=== PATIENT | female | born 1950 | race Caucasian/White ===

== ENCOUNTER 2016-12-14 18:11 | Inpatient (IN) | payer OTHER ==
[~2016-12-14] VITALS: Ht 154.9 cm; Wt 89.5 kg
[~2016-12-14 18:11] MED LIST: ALBU8.5H3 IH; ASPI-535 PO; CLOP75TA27 PO; GABA100C14 PO; HYDR-3498 PO; INSU100C SQ; INSU100V19 SC; LANT3I SQ; LEVA15HF6 INH; LEVO75TA59 PO; MEVA40 PO; OMEG-135 PO; OMEP40CA3 PO; TIMO5DRO30 BOTH EYES; VALS40TA2 PO
[2016-12-14] MEDS ORDERED: ASPIRIN 325 MG TAB PO STA (18:50)
[2016-12-14] MEDS ORDERED: LABETALOL HCL 20MG INJ IV ONE (19:00)
[2016-12-14 19:15] LABS: ADD SCAN DIFF NO
[2016-12-14 19:22] LABS: BASOPHILS % 0.3 % (0.0-2.0); EOSINOPHILS # 0.1 10^3/ul (0.0-0.5); EOSINOPHILS % 1.4 % (0.0-7.0); HEMATOCRIT 32.5 % (37.0-47.0); HEMOGLOBIN 11.3 g/dl (12.0-16.0); LYMPHOCYTES # 2.3 10^3/ul (0.8-2.9); LYMPHOCYTES % 35.4 % (15.0-51.0); MEAN CORPUSCULAR HEMOGLOBIN 28.8 pg (29.0-33.0); MEAN CORPUSCULAR HGB CONC 34.8 g/dl (32.0-37.0); MEAN CORPUSCULAR VOLUME 82.7 fl (82.0-101.0); MONOCYTE # 0.6 10^3/ul (0.3-0.9); MONOCYTES % 9.7 % (0.0-11.0); NEUTROPHIL # 3.4 10^3/ul (1.6-7.5); NEUTROPHILS % 52.7 % (39.0-77.0); PLATELET COUNT 176 10^3/UL (140-415); RED BLOOD COUNT 3.93 10^6/ul (4.20-5.40); RED CELL DISTRIBUTION WIDTH 12.5 % (11.5-14.5); WHITE BLOOD COUNT 6.5 10^3/ul (4.8-10.8)
[2016-12-14 19:40] LABS: INR 1.04; PROTIME 13.6 Sec (12.2-14.2); PT RATIO 1.1
[2016-12-14 19:41] LABS: PARTIAL THROMBOPLASTIN TIME 23.6 Sec (25.0-35.0)
--- NOTE | 2016-12-14 19:42 | RADRPT ---
PROCEDURE: XR Chest. CLINICAL INDICATION: Chest pain. TECHNIQUE: Single frontal view of the chest COMPARISON: 11/19/2015 FINDINGS: The cardiomediastinal silhouette is within normal limits. The lungs are clear. No signs of pleural f luid or pneumothorax are seen. The osseous structures and soft tissues are unremarkable. IMPRESSION: No evidence for active cardiopulmonary disease. RPTAT: [facility] Physician [facility] Date Time Electronically viewed and signed by Sima Marie Physician on 12/14/2016 19:41 RS/
[2016-12-14 19:45] LABS: ALBUMIN 4.3 g/dl (3.3-4.9); ALBUMIN/GLOBULIN RATIO 1.43; BILIRUBIN,INDIRECT 0.3 mg/dl (0-1.1); BILIRUBIN,TOTAL 0.3 mg/dl (0.2-1.3); CALCIUM 9.4 mg/dl (8.4-10.2); CREATININE 1.35 mg/dl (0.44-1.00); POTASSIUM 4.4 mmol/L (3.5-5.1); TOTAL PROTEIN 7.3 g/dl (6.1-8.1)
[2016-12-14 19:56] LABS: TROPONIN-I 0.028 ng/ml (0.00-0.12)
[2016-12-14] MEDS ORDERED: ASPI-664 PO (20:14)
[2016-12-14] MEDS ORDERED: CLOP75TA4 PO (20:14)
[2016-12-14] MEDS ORDERED: GABA400C14 PO (20:14)
[2016-12-14] MEDS ORDERED: LANT3I SC (20:15)
[2016-12-14] MEDS ORDERED: INSULIN LISPRO 100 UNIT/ML VIAL SC STA (20:16)
[2016-12-14] MEDS ORDERED: INSU100C SQ (20:17)
[2016-12-14] MEDS ORDERED: OMEP20CA16 PO (20:17)
[2016-12-14] MEDS ORDERED: ACET1TAB40 PO (20:19)
[2016-12-14] MEDS ORDERED: ALBI30PE SQ (20:19)
[2016-12-14] MEDS ORDERED: OMEG1CAP2 PO (20:20)
[2016-12-14] MEDS ORDERED: ATOR20TA38 PO (20:20)
[2016-12-14] MEDS ORDERED: FURO40TA4 PO (20:20)
[2016-12-14] MEDS ORDERED: HYDR-3672 PO (20:21)
[2016-12-14] MEDS ORDERED: SOD CHLORIDE 0.9% 1,000 ML IV ONE ×3 (20:30→23:30)
[2016-12-14] MEDS ORDERED: ACETAMINOPHEN 325 MG TAB PO PRN ×2 (20:30→23:30)
[2016-12-14] MEDS ORDERED: ONDANSETRON 4 MG INJ IV PRN ×2 (20:30→23:30)
--- NOTE | 2016-12-14 21:04 | ERA ---
ER Documentation Chief Complaint Date/Time DATE: 12/14/16 TIME: 21:00 Chief Complaint Pt reports n/v, fever weakness and hyperglycemia HPI This 66-year-old female presents for chest pain that is substernal nonradiating accompanied with shortness of breath is been going on since earlier today. She also has felt chills and generalized weakness. States that her sugars been very high and she is having trouble controlling at home. Denies vomiting ROS All systems reviewed and are negative except as per history of present illness. Medications Home Meds Reported Medications Hydralazine Hcl* (Hydralazine Hcl*) 50 Mg Tab, 50 MG PO BID, #60 TAB 12/14/16 Furosemide* (Furosemide*) 40 Mg Tablet, 40 MG PO BID, TAB 12/14/16 Atorvastatin Calcium* (Atorvastatin Calcium*) 20 Mg Tablet, 20 MG PO QHS, #30 TAB 12/14/16 [place]-3 Acid Ethyl Esters (Lovaza) 1 Gm Capsule, 2 GM PO QAM, CAP 12/14/16 Acetaminophen with Codeine (Acetaminophen-Cod #3 Tablet) 1 Each Tablet, 1 TAB PO BID, #20 TAB 12/14/16 Albiglutide (Tanzeum) 30 Mg/0.5 Ml Pen.injctr, 30 MG SQ QTUESDAY 12/14/16 Omeprazole* (Omeprazole*) 20 Mg Capsule.dr, 20 MG PO DAILY, #30 CAP 12/14/16 Insulin Lispro (Humalog) 100 Unit/1 Ml Cartridge, 11 UNIT SQ BID TAKE BEFORE LUNCH AND DINNER 12/14/16 Insulin Glargine* (Lantus*) 100 Unit/Ml Soln, 30 UNIT SC QAM, #1 VIAL 12/14/16 Gabapentin* (Gabapentin*) 400 Mg Capsule, 400 MG PO TID, #90 CAP 12/14/16 Clopidogrel Bisulfate* (Clopidogrel Bisulfate*) 75 Mg Tablet, 75 MG PO DAILY, # 30 TAB 12/14/16 Aspirin* (Aspirin* EC) 81 Mg Tablet.dr, 81 MG PO DAILY, TAB 12/14/16 Discontinued Reported Medications Gabapentin* (Gabapentin*) 100 Mg Capsule, 500 MG PO DAILY, #90 CAP 11/19/15 Insulin Glargine* (Lantus*) 100 Unit/Ml Soln, 70 UNITS SQ PM 10/22/13 Insulin Lispro (Humalog) 100 U/Ml Cartridge, 10 SQ PM 09/27/13 Insulin Lispro (Humalog) 100 U/Ml Cartridge, 13 SQ AM 09/27/13 Valsartan* (Diovan*) 40 Mg Tablet, 40 MG PO DAILY 09/27/13 Clopidogrel Bisulfate (Clopidogrel) 75 Mg Tablet, 75 MG PO DAILY 09/27/13 Fish Oil* (Fish Oil*) 1,000 Mg Cap, 1000 MG PO DAILY, CAP 09/27/13 Albuterol Sulfate* (Proair HFA*) 8.5 Gm Hfa.aer.ad, 1 PUFF IH Y for SHORTNESS OF BREATH 09/27/13 Timolol Maleate* (Timoptic*) 5 Ml Drops, 1 DROP BOTH EYES BID 09/27/13 Levalbuterol* (Xopenex* HFA) 15 Gm Inha, 3 INH INH TID 07/17/12 Omeprazole* (Prilosec*) 40 Mg Capsule.dr, 20 MG PO DAILY 07/17/12 Lovastatin (Lovastatin) 40 Mg Tablet, 40 MG PO DAILY 07/17/12 Levothyroxine Sodium (Levothroid) 75 Mcg Tablet, 75 MCG PO DAILY 07/17/12 Insulin Glargine,Hum.rec.anlog (Lantus) 100 U/Ml Vial, 90 UNITS SC AM, 0 Refills 07/17/12 Aspirin Ec (Aspir 81) 81 Mg Tablet.dr, 1 TAB PO DAILY, 0 Refills 03/29/10 Discontinued Scripts Hydrocodone Bit-Acetaminophen* (Stanton*) 5-325 Mg Tab, 1 TAB PO Q6 Y for SEVERE PAIN LEVEL 7-10, #20 TAB Prov:NADEEM RICO NP 08/05/15 Allergies Allergies: Coded Allergies: No Known Drug Allergies (Verified Allergy, Unknown, 12/14/16) PMhx/Soc History of Surgery: Yes (cabg 2002) Anesthesia Reaction: No Hx Neurological Disorder: No Hx Respiratory Disorders: No Hx Cardiac Disorders: Yes (CAD) Hx Psychiatric Problems: No Hx Miscellaneous Medical Probl: No Hx Alcohol Use: No Hx Substance Use: No Hx Tobacco Use: No Smoking Status: Never smoker Physical Exam Vitals Vital Signs Date Time Temp Pulse Resp B/P Pulse Ox O2 Delivery O2 Flow Rate FiO2 12/14/16 19:30 81 18 153/97 98 Room Air 12/14/16 18:39 98.5 94 24 224/100 98 Physical Exam Const: [] Mild distress, appears uncomfortable Head: Atraumatic Eyes: Normal Conjunctiva ENT: Normal External Ears, Nose and Mouth. Neck: Full range of motion..~ No meningismus. Resp: Clear to auscultation bilaterally Cardio: Regular rate and rhythm, no murmurs Abd: Soft, non tender, non distended. Normal bowel sounds Skin: No petechiae or rashes Back: No midline or flank tenderness Ext: No cyanosis, or edema Neur: Awake and alert and oriented 3, no focal deficit Psych: Normal Mood and Affect Result Diagram: 12/15/1672412/15/16 0725 Results 24 hrs Laboratory Tests Test 12/14/16 18:35 12/14/16 19:05 12/14/16 20:23 Bedside Glucose > 595mg/dL > 595mg/dL White Blood Count 6.510^3/ul Red Blood Count 3.9310^6/ul Hemoglobin 11.3g/dl Hematocrit 32.5% Mean Corpuscular Volume 82.7fl Mean Corpuscular Hemoglobin 28.8pg Mean Corpuscular Hemoglobin Concent 34.8g/dl Red Cell Distribution Width 12.5% Platelet Count 90390^3/UL Mean Platelet Volume 12.0fl Neutrophils % 52.7% Lymphocytes % 35.4% Monocytes % 9.7% Eosinophils % 1.4% Basophils % 0.3% Nucleated Red Blood Cells % 0.0/100WBC Neutrophils # 3.410^3/ul Lymphocytes # 2.310^3/ul Monocytes # 0.610^3/ul Eosinophils # 0.110^3/ul Basophils # 0.010^3/ul Nucleated Red Blood Cells # 0.010^3/ul Prothrombin Time 13.6Sec Prothrombin Time Ratio 1.1 INR International Normalized Ratio 1.04 Activated Partial Thromboplast Time 23.6Sec Sodium Level 125mmol/L Potassium Level 4.4mmol/L Chloride Level 92mmol/L Carbon Dioxide Level 25mmol/L Anion Gap 12 Blood Urea Nitrogen 32mg/dl Creatinine 1.35mg/dl Glucose Level 664mg/dl Calcium Level 9.4mg/dl Total Bilirubin 0.3mg/dl Direct Bilirubin 0.00mg/dl Indirect Bilirubin 0.3mg/dl Aspartate Amino Transf (AST/SGOT) 23IU/L Alanine Aminotransferase (ALT/SGPT) 35IU/L Alkaline Phosphatase 188IU/L Troponin I 0.028ng/ml B-Type Natriuretic Peptide 940PG/ML Total Protein 7.3g/dl Albumin 4.3g/dl Globulin 3.00g/dl Albumin/Globulin Ratio 1.43 Lipase 138U/L Current Medications Medications (Trade) Dose Ordered Sig/Vicenta Route PRN Reason Start Time Stop Time Status Last Admin Dose Admin Aspirin (Aspirin) 325 mg ONCE STAT PO 12/14/16 18:50 12/14/16 18:57 DC 12/14/16 19:08 Labetalol HCl 20 mg 20 mg ONCE ONCE IV 12/14/16 19:00 12/14/16 19:01 DC 12/14/16 19:09 Sodium Chloride (NS) 1,000 ml @ 1,000 mls/hr Q1H ONCE IV 12/14/16 20:30 12/14/16 21:29 DC 12/14/16 20:17 Insulin Human Lispro (Humalog) 16 unit ONCE STAT SC 12/14/16 20:16 12/14/16 20:17 DC 12/14/16 20:20 Ondansetron HCl (Zofran Inj) 4 mg ER BRIDGE PRN IV NAUSEA AND/OR VOMITING 12/14/16 20:30 12/15/16 20:29 DC Acetaminophen (Tylenol Tab) 650 mg ER BRIDGE PRN PO MILD PAIN/FEVER 12/14/16 20:30 12/15/16 20:29 DC Procedures/MDM Chest pain and shortness of breath with out of control hyperglycemia. Patient was given 3 L of fluid in the emergency room help lower sugar. She is also given 60 mg of IM lispro. Sugar did decrease within a couple hours to 499. She was also given aspirin. She was admitted to telemetry for further monitoring and trending of troponins although the initial troponin was negative and EKG was nonischemic. Spoke with Dr. De will be admitting the patient to telemetry. EKG interpretation: Sinus origin of rhythm without ST or T-wave changes concerning for acute ischemia. court recording monitor interpretation: Normal sinus rhythm without arrhythmia Chest x-ray interpretation: I see no acute process. I see no infiltrate, no pulmonary edema, no pneumothorax, no fractures Departure Diagnosis: Primary Impression: Chest pain Additional Impressions: Uncontrolled diabetes mellitus Anemia Condition: Serious JOHNSON VERA DO Dec 14, 2016 21:03
[2016-12-14 23:00] VITALS: Ht 154.9 cm; Wt 89.5 kg
[2016-12-14 23:13] VITALS: PULSE 80
[2016-12-14 23:18] VITALS: BP 177/77; RESP 17
[2016-12-14] MEDS ORDERED: morphine 2 MG INJ IV PRN (23:30)
[2016-12-14] MEDS ORDERED: NITROGLYCERIN (SL) 0.4 MG TAB SL PRN (23:30)
[2016-12-14] MEDS ORDERED: NACL 0.9% 3 ML SYG IV SCH (23:30)
[2016-12-14] MEDS ORDERED: GLUCOSE GEL 15 GRAM TUBE BUCCAL PRN (23:45)
[2016-12-14] MEDS ORDERED: DEXTROSE 50% 50 ML SYRINGE IV PRN ×2 (23:45)
[2016-12-14] MEDS ORDERED: GLUCAGON 1 MG INJ IM PRN (23:45)
[2016-12-14] MEDS ORDERED: GLUCOSE GEL 15 GRAM TUBE PO PRN ×2 (23:45)
[2016-12-15] VITALS (13 sets, daily range): BP systolic 138–181; BP diastolic 66–89; PULSE 67–78; RESP 17–20
[2016-12-15] MEDS: INSULIN ASPART [NOVOLOG] 3 ML PEN SC SCH ×6 (01:15→21:48)
[2016-12-15] MEDS: ACCU-CHEK XX SCH (02:00)
[2016-12-15 02:15] LABS: CALCIUM 8.9 mg/dl (8.4-10.2); CREATININE 1.09 mg/dl (0.44-1.00); POTASSIUM 3.8 mmol/L (3.5-5.1)
[2016-12-15 02:24] LABS: CK-MB 1.5 ng/ml (0.0-2.4); TROPONIN-I 0.03 ng/ml (0.00-0.12)
[2016-12-15] MEDS: SOD CHLORIDE 0.9% 1,000 ML IV SCH ×3 (02:28→21:37)
[2016-12-15] MEDS ORDERED: INSULIN ASPART [NOVOLOG] 3 ML PEN SC ONE (03:30)
[2016-12-15] MEDS ORDERED: ALBIGLUTIDE 30 MG SQ SCH (04:00)
--- NOTE | 2016-12-15 04:04 | HP ---
Date/Time of Note Date/Time of Note DATE: 12/15/16 TIME: 03:53 Assessment/Plan VTE Prophylaxis VTE Prophylaxis Intervention: SCD's Lines/Catheters IV Catheter Type (from [facility]): [facility] Assessment/Plan Chief Complaint/Hosp Course This is a 66-year-old female being admitted to the telemetry floor for: #1 chest pain: Rule out ACS. Patient does have a significant cardiac history as well as risk factors. At the current time will trend troponins, will check a echocardiogram. EKG did not show any ST or T-wave abnormalities. Consult cardiology. #2 Hyperglycemia: Patient initially presented with sugars in the 600s. She was subsequently given insulin injections. Will continue to check blood sugars every 1-2 hours. Put patient on moderate sliding scale. We will also give IV fluid hydration. Currently no signs of DKA. #3 poorly controlled diabetes: We will check a hemoglobin A1c. Will adjust patient's insulin as indicated. #4 Hyponatremia: This likely appears to be pseudo-hyponatremia secondary to her elevated blood sugars. We will continue IV fluid hydration and correction of the glucose. And will continue to monitor the sodium levels. #5 hypertension: Continue home medications. #6 chronic kidney disease: We will continue fluid hydration at this time. Based on patient's diabetes mellitus and suspected chronic kidney disease she would likely benefit from an YESENIA or an arb upon discharge. #7 DVT GI prophylaxis SCDs, Protonix Further treatment strategy will be implemented as per the clinical course Problems: HPI/ROS Admit Date/Time Admit Date/Time Dec 14, 2016 at 20:32 Hx of Present Illness chief complaint: Chest pain, generalized weakness This 66-year-old female presents for chest pain that is substernal nonradiating accompanied with shortness of breath is been going on since earlier today. She also has felt chills and generalized weakness. Patient recently returned from [place] and when she arrived home her daughter noticed that she was not appearing well and her blood sugars were well controlled she brought her into the ED. she describes her chest pain as a dull pressure-like sensation. It is nonradiating. Denies any nausea or vomiting. Allergies: NKDA Medications: See ADRIA MENDOZA Const: As per HPI Eyes : No pain discharge or redness or change in visual acuity ENT: No pain, sore throat, congestion, congestion, dysphagia or discharge Respiratory: No shortness of breath, cough, sputum, wheezing, or pleuritic pain Cardiovascular: As per HPI GI : no change in appetite, abdominal pain, nausea, vomiting, diarrhea, constipation, or change in the color his stool Genitourinary: No dysuria, hematuria, flank pain , discharge or CVA tenderness Musculoskeletal: No joint pain, back pain, neck pain, restricted range of motion in neck or joints Skin: No rash, bruising or hives Neuro: No headache, dizziness, syncope, seizure, focal weakness Endocrine: As per HPI Psych: No hallucination, depression, anxiety or suicidal ideation PMH/Family/Social Past Medical History CAD status post stents 2, diabetes mellitus, hypertension, chronic kidney disease Past Surgical History CABG, stents 2 cardiac, eye surgery Family History Significant Family History: diabetes Social History Alcohol Use: none Smoking Status: Never smoker Drug Use: none Exam/Review of Systems Vital Signs Vitals Vital Signs Date Time Temp Pulse Resp B/P Pulse Ox O2 Delivery O2 Flow Rate FiO2 12/15/16 00:02 97.7 74 17 176/74 98 12/14/16 21:30 Room Air Intake and Output 12/14/16 12/14/16 12/15/16 15:00 23:00 07:00 Intake Total 1060 ml Balance 1060 ml Exam Exam General: Patient is a obese female laying in bed in no acute distress. HEENT: Atraumatic, normocephalic. The pupils are equal, round and reactive. Extraocular motor are intact Neck: Supple with full range of motion. No rigidity or meningismus Chest: Nontender Lungs: Clear to auscultation bilaterally no crackles rales or wheezing Heart: Normal S1-S2, Regular rhythm and rate. No overt murmurs appreciated Abdomen: Soft , nontender, nondistended , bowel sounds are present. No guarding no rebound tenderness , No masses or organomegaly. Extremities: Normal to inspection, no edema no cyanosis Neurologic: Normal mental status, speech normal, cranial nerves II through XII are intact, motor and sensory are intact, no focal weakness Additional Comments PROCEDURE: XR Chest. CLINICAL INDICATION: Chest pain. TECHNIQUE: Single frontal view of the chest COMPARISON: 11/19/2015 FINDINGS: The cardiomediastinal silhouette is within normal limits. The lungs are clear. No signs of pleural fluid or pneumothorax are seen. The osseous structures and soft tissues are unremarkable. IMPRESSION: No evidence for active cardiopulmonary disease. RPTAT: [facility] Physician [facility] Date Time Electronically viewed and signed by Sima Marie Physician on 12/14/2016 19:41 EKG did not show any ST or T-wave abnormalities. as per ed physician documentation Labs Result Diagram: 12/14/16 1905 12/15/16 0043 Medications Medications Current Medications Sodium Chloride (NS) 1,000 ml @ 75 mls/hr [id number] IV Last administered on 12/15 02:28; Admin Dose 75 MLS/HR; Start 12/14/16 at 23:15 Ondansetron HCl (Zofran Inj) 4 mg Q6H PRN IV NAUSEA AND/OR VOMITING; Start 04/22 at 23:30 Aspirin (Aspirin) 81 mg DAILY PO ; Start 12/15/16 at 09:00 Nitroglycerin (Nitroglycerin (Sl Tab) 0.4 Mg) 1 tab Q5M PRN SL CHEST PAIN; Start 12/14/16 at 23:30 Acetaminophen (Tylenol Tab) 650 mg Q6H PRN PO PAIN LEVEL 1-3 OR FEVER; Start at 23:30 Morphine Sulfate (morphine) 2 mg Q4H PRN IV PAIN LEVEL 7-10; Start 12/14/16 at 23:30 Pantoprazole (Protonix Iv) 40 mg DAILY@06 IV ; Start 12/15/16 at 06:00 Diagnostic Test (Pha) (Accu-Chek) 1 ea 02 XX ; Start 12/15/16 at 02:00 Insulin Aspart (Novolog Insulin Pen) NOVOLOG *MODERATE* ALGORI... Q4 SC Last administered on 12/15/16 01:15; Admin Dose 10 UNIT; Start 12/15/16 at 01:00 Miscellaneous Information 1 ea NOTE XX ; Start 12/14/16 at 23:45 Glucose (Glutose) 15 gm Q15M PRN PO DECREASED GLUCOSE; Start 12/14/16 at 23:45 Glucose (Glutose) 22.5 gm Q15M PRN PO DECREASED GLUCOSE; Start 12/14/16 at 23: 45 Dextrose (D50w Syringe) 25 ml Q15M PRN IV DECREASED GLUCOSE; Start 12/14/16 at 23:45 Dextrose (D50w Syringe) 50 ml Q15M PRN IV DECREASED GLUCOSE; Start 12/14/16 at 23:45 Glucagon (Glucagen) 1 mg Q15M PRN IM DECREASED GLUCOSE; Start 12/14/16 at 23:45 Glucose (Glutose) 15 gm Q15M PRN BUCCAL DECREASED GLUCOSE; Start 12/14/16 at 23 :45 Hydralazine HCl (Apresoline) 50 mg BID PO Last administered on 12/15/16t 00:31 ; Admin Dose 50 MG; Start 12/15/16 at 00:30 Hydralazine HCl (Apresoline) 10 mg Q6H PRN IV ELEVATED SYSTOLIC BP; Start 12/15 at 00:30 MILAGROS CONNOR Dec 15, 2016 04:03
[2016-12-15] MEDS: PANTOPRAZOLE 40 MG INJ IV SCH (05:14)
[2016-12-15] MEDS: CLOPIDOGREL 75 MG TAB PO SCH (08:32)
[2016-12-15] MEDS: FISH OIL 1,000 MG CAP PO SCH (08:32)
[2016-12-15] MEDS: GABAPENTIN 400 MG CAP PO SCH ×3 (08:33→21:27)
[2016-12-15] MEDS: ASPIRIN (EC) 81 MG TAB PO SCH (08:33)
[2016-12-15] MEDS ORDERED: ASPIRIN 81 MG TAB PO SCH (09:00)
[2016-12-15 09:05] LABS: ADD SCAN DIFF NO
[2016-12-15 09:10] LABS: BASOPHILS % 0.2 % (0.0-2.0); EOSINOPHILS # 0.1 10^3/ul (0.0-0.5); EOSINOPHILS % 2.3 % (0.0-7.0); HEMATOCRIT 29.4 % (37.0-47.0); HEMOGLOBIN 10.1 g/dl (12.0-16.0); LYMPHOCYTES # 1.8 10^3/ul (0.8-2.9); LYMPHOCYTES % 32.1 % (15.0-51.0); MEAN CORPUSCULAR HEMOGLOBIN 29.4 pg (29.0-33.0); MEAN CORPUSCULAR HGB CONC 34.4 g/dl (32.0-37.0); MEAN CORPUSCULAR VOLUME 85.5 fl (82.0-101.0); MEAN PLATELET VOLUME 12.3 fl (7.4-10.4); MONOCYTE # 0.6 10^3/ul (0.3-0.9); MONOCYTES % 10.2 % (0.0-11.0); NEUTROPHIL # 3.1 10^3/ul (1.6-7.5); PLATELET COUNT 155 10^3/UL (140-415); RED BLOOD COUNT 3.44 10^6/ul (4.20-5.40); RED CELL DISTRIBUTION WIDTH 12.5 % (11.5-14.5); WHITE BLOOD COUNT 5.7 10^3/ul (4.8-10.8)
[2016-12-15 09:32] LABS: ALBUMIN 3.1 g/dl (3.3-4.9); ALBUMIN/GLOBULIN RATIO 1.29; BILIRUBIN,INDIRECT 0.1 mg/dl (0-1.1); BILIRUBIN,TOTAL 0.1 mg/dl (0.2-1.3); CALCIUM 9.1 mg/dl (8.4-10.2); CHOL/HDL RATIO 4.2 RATIO; CREATININE 1.07 mg/dl (0.44-1.00); POTASSIUM 4.3 mmol/L (3.5-5.1); TOTAL PROTEIN 5.5 g/dl (6.1-8.1)
[2016-12-15 10:01] LABS: THYROID STIMULATING HORMONE 0.022 MIU/L (0.465-4.680)
[2016-12-15 10:30] LABS: CK-MB 1.43 ng/ml (0.0-2.4); TROPONIN-I 0.031 ng/ml (0.00-0.12)
--- NOTE | 2016-12-15 11:41 | CONS ---
Date/Time of Note Date/Time of Note DATE: 12/15/16 TIME: 11:35 Assessment/Plan Assessment/Plan Additional Assessment/Plan Chest pain Fevers, chills and cough CAD with history of CABG Hypertension, not controlled Dyslipidemia Thyroid dysfunction -Patient's chest discomfort is worse with palpation of chest wall and with coughing. Serial cardiac enzymes remain negative. Patient with history of cardiac catheterization November 2015 with no significant obstructive disease. Echocardiogram to be done. Increase frequency of hydralazine and start YESENIA inhibitor if no contraindication. Consultation Date/Type/Reason Admit Date/Time Dec 14, 2016 at 20:32 Type of Consultation: cv Reason for Consultation Chest pain Hx of Present Illness This is a 66-year-old female with past medical history of coronary artery disease with history of CABG, hypertension, dyslipidemia, thyroid dysfunction who presents with multiple complaints. Patient with symptoms of fevers and chills going on for the past for 5 days, cough which has been productive, shortness of breath associated with cough and developed left-sided chest pain from yesterday. Chest pain is worse with coughing and pushing on chest wall. Chest discomfort is sharp in nature and patient points to a distinct area in her chest wall with the pain is at. Exertion does not worsen or improve chest discomfort. She is currently feeling better since her admission. 12 point review of systems was performed with all pertinent positives and negatives mentioned above and all else is negative Past Medical History Medical History: coronary artery disease, high cholesterol, hypertension Past Surgical History Past Surgical Hx: coronary bypass surgery Family History Significant Family History: no pertinent family hx Social History Alcohol Use: none Smoking Status: Never smoker Drug Use: none Exam/Review of Systems Vital Signs Vitals Vital Signs Date Time Temp Pulse Resp B/P Pulse Ox O2 Delivery O2 Flow Rate FiO2 12/15/16 11:28 97.7 70 18 181/66 100 12/14/16 21:30 Room Air Intake and Output 12/14/16 12/14/16 12/15/16 15:00 23:00 07:00 Intake Total 1181 ml Balance 1181 ml Exam No apparent distress Constitutional: alert, obese, oriented Head: normocephalic Neck: supple Respiratory: other (Coarse breath sounds bilaterally, no wheezing) Cardiovascular: other (S1-S2 heard), regular rate and rhythm Gastrointestinal: bowel sounds, non-tender, soft Extremities: other (No edema) Results Result Diagram: 12/15/16 0725 12/15/16 0725 Results 24 hrs Laboratory Tests Test 12/14/16 18:35 12/14/16 19:05 12/14/16 20:23 12/14/16 22:07 Bedside Glucose > 595 *H > 595 *H 499 *H White Blood Count 6.5 Red Blood Count 3.93 L Hemoglobin 11.3 L Hematocrit 32.5 L Mean Corpuscular Volume 82.7 Mean Corpuscular Hemoglobin 28.8 L Mean Corpuscular Hemoglobin Concent 34.8 Red Cell Distribution Width 12.5 Platelet Count 176 Mean Platelet Volume 12.0 #H Neutrophils % 52.7 Lymphocytes % 35.4 Monocytes % 9.7 Eosinophils % 1.4 Basophils % 0.3 Nucleated Red Blood Cells % 0.0 Neutrophils # 3.4 Lymphocytes # 2.3 Monocytes # 0.6 Eosinophils # 0.1 Basophils # 0.0 Nucleated Red Blood Cells # 0.0 Prothrombin Time 13.6 Prothrombin Time Ratio 1.1 INR International Normalized Ratio 1.04 Activated Partial Thromboplast Time 23.6 L Sodium Level 125 L Potassium Level 4.4 Chloride Level 92 L Carbon Dioxide Level 25 Anion Gap 12 Blood Urea Nitrogen 32 H Creatinine 1.35 H Glucose Level 664 *H Calcium Level 9.4 Total Bilirubin 0.3 Direct Bilirubin 0.00 Indirect Bilirubin 0.3 Aspartate Amino Transf (AST/SGOT) 23 Alanine Aminotransferase (ALT/SGPT) 35 Alkaline Phosphatase 188 H Troponin I 0.028 B-Type Natriuretic Peptide 940 H Total Protein 7.3 Albumin 4.3 Globulin 3.00 Albumin/Globulin Ratio 1.43 Lipase 138 Test 12/14/16 23:27 12/15/16 00:42 12/15/16 00:43 12/15/16 01:04 Bedside Glucose 373 H 345 H Creatine Kinase 81 Creatine Kinase Index 1.9 Creatinine Kinase MB (Mass) 1.50 Troponin I 0.030 Sodium Level 127 L Potassium Level 3.8 Chloride Level 100 Carbon Dioxide Level 23 Anion Gap 8 Blood Urea Nitrogen 28 H Creatinine 1.09 H Glucose Level 334 #H Calcium Level 8.9 Test 12/15/16 03:05 12/15/16 05:12 12/15/16 07:25 12/15/16 07:35 Bedside Glucose 303 H 220 White Blood Count 5.7 Red Blood Count 3.44 L Hemoglobin 10.1 L Hematocrit 29.4 L Mean Corpuscular Volume 85.5 Mean Corpuscular Hemoglobin 29.4 Mean Corpuscular Hemoglobin Concent 34.4 Red Cell Distribution Width 12.5 Platelet Count 155 Mean Platelet Volume 12.3 H Neutrophils % 55.0 Lymphocytes % 32.1 Monocytes % 10.2 Eosinophils % 2.3 Basophils % 0.2 Nucleated Red Blood Cells % 0.0 Neutrophils # 3.1 Lymphocytes # 1.8 Monocytes # 0.6 Eosinophils # 0.1 Basophils # 0.0 Nucleated Red Blood Cells # 0.0 Sodium Level 133 L Potassium Level 4.3 Chloride Level 104 Carbon Dioxide Level 28 Anion Gap 5 L Blood Urea Nitrogen 23 H Creatinine 1.07 H Glucose Level 160 # Hemoglobin A1c 13.8 H Calcium Level 9.1 Total Bilirubin 0.1 L Direct Bilirubin 0.00 Indirect Bilirubin 0.1 Aspartate Amino Transf (AST/SGOT) 20 Alanine Aminotransferase (ALT/SGPT) 26 Alkaline Phosphatase 96 Total Protein 5.5 #L Albumin 3.1 #L Globulin 2.40 Albumin/Globulin Ratio 1.29 Triglycerides Level 197 H Cholesterol Level 158 LDL Cholesterol, Calculated 82 HDL Cholesterol 37 Cholesterol/HDL Ratio 4.2 Thyroid Stimulating Hormone (TSH) 0.022 L Creatine Kinase 63 Creatine Kinase Index 2.3 Creatinine Kinase MB (Mass) 1.43 Troponin I 0.031 Test 12/15/16 08:31 Bedside Glucose 147 Medications Medications Current Medications Sodium Chloride (NS) 1,000 ml @ 75 mls/hr [id number] IV Last administered on 12/15t 02:28; Admin Dose 75 MLS/HR; Start 12/14/16 at 23:15 Ondansetron HCl (Zofran Inj) 4 mg Q6H PRN IV NAUSEA AND/OR VOMITING; Start 04/22 at 23:30 Aspirin (Aspirin) 81 mg DAILY PO ; Start 12/15/16 at 09:00 Nitroglycerin (Nitroglycerin (Sl Tab) 0.4 Mg) 1 tab Q5M PRN SL CHEST PAIN; Start 12/14/16 at 23:30 Acetaminophen (Tylenol Tab) 650 mg Q6H PRN PO PAIN LEVEL 1-3 OR FEVER; Start at 23:30 Morphine Sulfate (morphine) 2 mg Q4H PRN IV PAIN LEVEL 7-10; Start 12/14/16 at 23:30 Pantoprazole (Protonix Iv) 40 mg DAILY@06 IV Last administered on 12/15/16 05: 14; Admin Dose 40 MG; Start 12/15/16 at 06:00 Diagnostic Test (Pha) (Accu-Chek) 1 ea 02 XX ; Start 12/15/16 at 02:00 Insulin Aspart (Novolog Insulin Pen) NOVOLOG *MODERATE* ALGORI... Q4 SC Last administered on 12/15/16 08:41; Admin Dose 2 UNIT; Start 12/15/16 at 01:00 Miscellaneous Information 1 ea NOTE XX ; Start 12/14/16 at 23:45 Glucose (Glutose) 15 gm Q15M PRN PO DECREASED GLUCOSE; Start 12/14/16 at 23:45 Glucose (Glutose) 22.5 gm Q15M PRN PO DECREASED GLUCOSE; Start 12/14/16 at 23: 45 Dextrose (D50w Syringe) 25 ml Q15M PRN IV DECREASED GLUCOSE; Start 12/14/16 at 23:45 Dextrose (D50w Syringe) 50 ml Q15M PRN IV DECREASED GLUCOSE; Start 12/14/16 at 23:45 Glucagon (Glucagen) 1 mg Q15M PRN IM DECREASED GLUCOSE; Start 12/14/16 at 23:45 Glucose (Glutose) 15 gm Q15M PRN BUCCAL DECREASED GLUCOSE; Start 12/14/16 at 23 :45 Hydralazine HCl (Apresoline) 50 mg BID PO Last administered on 12/15/16 08:33 ; Admin Dose 50 MG; Start 12/15/16 at 00:30 Hydralazine HCl (Apresoline) 10 mg Q6H PRN IV ELEVATED SYSTOLIC BP; Start 12/15 at 00:30 Aspirin (Halfprin) 81 mg DAILY PO Last administered on 12/15/16 08:33; Admin Dose 81 MG; Start 12/15/16 at 09:00 Atorvastatin Calcium (Lipitor) 20 mg QHS PO ; Start 12/15/16 at 21:00 Clopidogrel Bisulfate (plaVIX) 75 mg DAILY PO Last administered on 12/15/16 08 :32; Admin Dose 75 MG; Start 12/15/16 at 09:00 Gabapentin (Neurontin) 400 mg TID PO Last administered on 12/15/16 08:33; Admin Dose 400 MG; Start 12/15/16 at 09:00 Hydralazine HCl (Apresoline) 50 mg BID PO ; Start 12/15/16 at 09:00 Fish Oil (Fish Oil) 2,000 mg QAM PO Last administered on 12/15/16t 08:32; Admin Dose 2,000 MG; Start 12/15/16 at 09:00 Procedures Procedures ECG demonstrates sinus rhythm, QRS 82 ms, nonspecific ST-T abnormalities Garry Pollard DO Dec 15, 2016 11:41
[2016-12-15] MEDS: LISINOPRIL 5 MG TAB PO SCH ×2 (12:39→21:28)
[2016-12-15] MEDS: GUAIFENESIN/CODEINE 5ML CUP PO PRN (15:27)
[2016-12-15] MEDS ORDERED: INSULIN ASPART [NOVOLOG] 3 ML PEN SC SCH (17:25)
[2016-12-15] MEDS ORDERED: INSULIN GLARGINE [LANtus] 3 ML PEN SC SCH (20:00)
[2016-12-15] MEDS: ATORVASTATIN 20 MG TAB PO SCH (21:27)
--- NOTE | 2016-12-15 21:34 | RADRPT ---
Echocardiogram Report Patient Name: MARTY TYLER Gender: Female Date: 1950 Study Date: 15-Dec-2016 Phlebotomist Supervisor/Instructor: Femi Bennett [facility] Location: [address] Ref. Physician: MILAGROS CONNOR Quality: Adequate Procedures: Transthoracic echocardiogram with complete 2D, M-Mode, and doppler examination. Indications: Chest Pain. 2D/M Mode Doppler Measurement Value Normal Ranges Measurement Value Normal Ranges LVIDd 2D 3.7 3.5 - 5.6 cm AV Peak Michael 1.5 m/sec LVIDs 2D 2.9 2.1 - 4.1 cm AV Peak PG 9.1 mmHg LVPWd 2D 0.9 0.6 - 1.1 cm LVOT Peak Michael 0.9 m/sec IVSd 2D 0.9 0.6 - 1.1 cm LVOT Peak PG 3.4 mmHg AoR Diam 2D 2.5 2.0 - 3.7 cm MV E Peak Michael 0.7 m/sec EDV 2D 59.5 cm3 MV A Peak Michael 0.8 m/sec ESV 2D 24.2 cm3 MV E/A 0.9 LA Dimen 2D 3.7 2.3 - 4.0 cm MV Decel Time 229 msec MV Decel Calhoun 3 MV E/A 0.9 TR Peak Michael 2.5 m/sec TR Peak PG 25.5 mmHg RVSP 29.0 mmHg Findings Left Ventricle: Normal left ventricular systolic function. Normal left ventricular cavity size. Normal left ventricular wall thickness. Ejection fraction is visually estimated at 60 %. Tissue Doppler/Mitral Doppler indices are consistent with impaired relaxation (Stage I diastolic dysfunction). Right Ventricle: Normal right ventricular size. Normal right ventricular systolic function. Left Atrium: The left atrium is normal in size. Right Atrium: The right atrium is normal in size. Mitral Valve: Mitral valve leaflets appear mildly thickened. Mild mitral annular calcification. Trace mitral regurgitation. Aortic Valve: No significant aortic stenosis or insufficiency. Aortic cusps appear mildly calcified. Tricuspid Valve: Normal appearance of the tricuspid valve. Estimated peak PA systolic pressure 29 mmHg. There is trace tricuspid regurgitation. Pulmonic Valve: Pulmonic valve not well visualized. Pericardium: Normal pericardium with no significant pericardial effusion. Aorta: Normal aortic root. IVC: Normal size and normal respiratory collapse consistent with normal right atrial pressure. Conclusions Normal left ventricular systolic function. Normal left ventricular cavity size. Normal left ventricular wall thickness. Ejection fraction is visually estimated at 60 %. Tissue Doppler/Mitral Doppler indices are consistent with impaired relaxation (Stage I diastolic dysfunction). Normal right ventricular size. Normal right ventricular systolic function. The left atrium is normal in size. The right atrium is normal in size. No significant valvular stenosis or regurgitation seen. Normal pericardium with no significant pericardial effusion. Electronically Signed By: Garry Pollard 15-Dec-2016 21:33:25 -0700 Patient Name: MARTY TYLER Study Date: 15-Dec-2016 [id number]
[2016-12-16] VITALS (11 sets, daily range): BP systolic 133–157; BP diastolic 61–78; PULSE 67–78; RESP 16–20
[2016-12-16] MEDS: SOD CHLORIDE 0.9% 1,000 ML IV SCH ×3 (00:35→23:52)
[2016-12-16] MEDS ORDERED: ACCU-CHEK XX SCH (02:00)
[2016-12-16] MEDS: ACCU-CHEK XX SCH (02:00)
[2016-12-16] MEDS ORDERED: INSULIN ASPART [NOVOLOG] 3 ML PEN SC ONE (02:30)
[2016-12-16] MEDS: PANTOPRAZOLE 40 MG INJ IV SCH (05:10)
[2016-12-16 08:07] LABS: ADD SCAN DIFF NO
[2016-12-16] MEDS: INSULIN ASPART [NOVOLOG] 3 ML PEN SC SCH ×7 (08:18→21:00)
[2016-12-16 08:22] LABS: BASOPHILS % 0.4 % (0.0-2.0); EOSINOPHILS # 0.1 10^3/ul (0.0-0.5); EOSINOPHILS % 2.3 % (0.0-7.0); HEMATOCRIT 30.1 % (37.0-47.0); HEMOGLOBIN 9.8 g/dl (12.0-16.0); LYMPHOCYTES # 1.7 10^3/ul (0.8-2.9); LYMPHOCYTES % 29.8 % (15.0-51.0); MEAN CORPUSCULAR HEMOGLOBIN 28.7 pg (29.0-33.0); MEAN CORPUSCULAR HGB CONC 32.6 g/dl (32.0-37.0); MEAN PLATELET VOLUME 11.9 fl (7.4-10.4); MONOCYTE # 0.6 10^3/ul (0.3-0.9); MONOCYTES % 10.6 % (0.0-11.0); NEUTROPHIL # 3.2 10^3/ul (1.6-7.5); NEUTROPHILS % 56.7 % (39.0-77.0); PLATELET COUNT 142 10^3/UL (140-415); RED BLOOD COUNT 3.42 10^6/ul (4.20-5.40); WHITE BLOOD COUNT 5.7 10^3/ul (4.8-10.8)
[2016-12-16 08:27] LABS: MAGNESIUM 1.4 mg/dl (1.7-2.5); PHOSPHORUS 3.2 mg/dl (2.5-4.9)
[2016-12-16 08:44] LABS: CALCIUM 8.7 mg/dl (8.4-10.2); CREATININE 1.26 mg/dl (0.44-1.00); POTASSIUM 4.5 mmol/L (3.5-5.1)
--- NOTE | 2016-12-16 09:54 | PN ---
Date/Time of Note Date/Time of Note DATE: 12/16/16 TIME: 09:53 Assessment/Plan VTE Prophylaxis VTE Prophylaxis Intervention: heparin Lines/Catheters IV C[facility]ter Type (from [facility] Peripheral IV Urinary Cath still in place: No Assessment/Plan Chief Complaint/Hosp Course 1. Chest pain. Acute coronary syndrome ruled out. Serial troponins negative. 2D echocardiogram showing preserved left ventricular ejection fraction. 2. Type 2 diabetes mellitus. Uncontrolled. Hemoglobin A1c 13.8. Continue sliding scale insulin along with pre-meal insulin Lantus insulin. Await diabetes education consult. 3. CAD with history of CABG in the past. Continue aspirin and Plavix. 4. Dyslipidemia. Continue statins. Fasting lipid panel suboptimal. 5. Essential hypertension. Continue antihypertensives. 6. Normocytic, normochromic anemia. Etiology unclear. Monitor H&H closely. Will obtain an iron panel. 7. Chronic kidney disease. Monitor BUN and creatinine closely. Avoid nephrotoxic medications. 8. Fluids, electrolytes, and nutrition. Carbohydrate controlled, low- cholesterol diet. 9. DVT prophylaxis. Subcutaneous heparin. 10. Gastrointestinal prophylaxis. Proton pump inhibitors. 11. Plan. Continue current management. Adjust insulin dosing to obtain optimal blood sugar control. Await diabetic education consult. Case discussed with . Problems: Subjective 24 Hr Interval Summary Free Text/Dictation Denies any chest pain. Complains of sore throat and occasional nonproductive cough. Exam/Review of Systems Vital Signs Vitals Vital Signs Date Time Temp Pulse Resp B/P Pulse Ox O2 Delivery O2 Flow Rate FiO2 12/16/16 08:30 68 12/16/16 07:43 98.0 18 156/69 98 12/14/16 21:30 Room Air Intake and Output 12/15/16 12/15/16 12/16/16 15:00 23:00 07:00 Intake Total 1320 ml 420 ml Balance 1320 ml 420 ml Exam General: Obese 66 year-old female lying in bed in no apparent distress. HEENT: Normocephalic, atraumatic. Eyes: Anicteric sclerae, conjunctivae clear. ENT: Nasal septum midline, oral mucosa moist. Neck supple, no JVD noticed. Respiratory: Bilaterally clear breath sounds. No use of accessory muscles of respiration. No adventitious breath sounds. Cardiovascular: S1, S2 heard. No murmurs or gallops. Abdomen: Soft, nontender, and nondistended. Bowel sounds positive in all 4 quadrants. Genitourinary: Deferred. Extremities: No cyanosis, no clubbing, no edema. Peripheral pulses palpable. Neurologic: Cranial nerves II through XII grossly intact. The patient is awake, alert, and oriented. Skin: Normal skin turgor. No skin rashes. Results Result Diagram: 12/16/16 0718 12/16/16 0718 Results 24 hrs Laboratory Tests Test 12/15/16 12:27 12/15/16 17:16 12/15/16 21:29 12/16/16 01:56 Bedside Glucose 178 258 H 207 315 H Test 12/16/16 07:18 12/16/16 08:11 White Blood Count 5.7 Red Blood Count 3.42 L Hemoglobin 9.8 L Hematocrit 30.1 L Mean Corpuscular Volume 88.0 Mean Corpuscular Hemoglobin 28.7 L Mean Corpuscular Hemoglobin Concent 32.6 Red Cell Distribution Width 13.0 Platelet Count 142 Mean Platelet Volume 11.9 H Neutrophils % 56.7 Lymphocytes % 29.8 Monocytes % 10.6 Eosinophils % 2.3 Basophils % 0.4 Nucleated Red Blood Cells % 0.0 Neutrophils # 3.2 Lymphocytes # 1.7 Monocytes # 0.6 Eosinophils # 0.1 Basophils # 0.0 Nucleated Red Blood Cells # 0.0 Sodium Level 132 L Potassium Level 4.5 Chloride Level 108 Carbon Dioxide Level 26 Anion Gap 3 L Blood Urea Nitrogen 18 Creatinine 1.26 H Glucose Level 245 H Calcium Level 8.7 Phosphorus Level 3.2 Magnesium Level 1.4 L Vitamin D 1,25-Dihydroxy 20.8 L Bedside Glucose 246 H Medications Medications Current Medications Sodium Chloride (NS) 1,000 ml @ 75 mls/hr [id number] IV Last administered on 12/15 21:37; Admin Dose 75 MLS/HR; Start 12/14/16 at 23:15 Ondansetron HCl (Zofran Inj) 4 mg Q6H PRN IV NAUSEA AND/OR VOMITING Last administered on 12/16/16 06:23; Admin Dose 4 MG; Start 12/14/16 at 23:30 Nitroglycerin (Nitroglycerin (Sl Tab) 0.4 Mg) 1 tab Q5M PRN SL CHEST PAIN; Start 12/14/16 at 23:30 Acetaminophen (Tylenol Tab) 650 mg Q6H PRN PO PAIN LEVEL 1-3 OR FEVER; Start at 23:30 Morphine Sulfate (morphine) 2 mg Q4H PRN IV PAIN LEVEL 7-10; Start 12/14/16 at 23:30 Pantoprazole (Protonix Iv) 40 mg DAILY@06 IV Last administered on 12/16/16 05: 10; Admin Dose 40 MG; Start 12/15/16 at 06:00 Diagnostic Test (Pha) (Accu-Chek) 1 ea 02 XX ; Start 12/15/16 at 02:00 Miscellaneous Information 1 ea NOTE XX ; Start 12/14/16 at 23:45 Glucose (Glutose) 15 gm Q15M PRN PO DECREASED GLUCOSE; Start 12/14/16 at 23:45 Glucose (Glutose) 22.5 gm Q15M PRN PO DECREASED GLUCOSE; Start 12/14/16 at 23: 45 Dextrose (D50w Syringe) 25 ml Q15M PRN IV DECREASED GLUCOSE; Start 12/14/16 at 23:45 Dextrose (D50w Syringe) 50 ml Q15M PRN IV DECREASED GLUCOSE; Start 12/14/16 at 23:45 Glucagon (Glucagen) 1 mg Q15M PRN IM DECREASED GLUCOSE; Start 12/14/16 at 23:45 Glucose (Glutose) 15 gm Q15M PRN BUCCAL DECREASED GLUCOSE; Start 12/14/16 at 23 :45 Hydralazine HCl (Apresoline) 10 mg Q6H PRN IV ELEVATED SYSTOLIC BP; Start 12/15 at 00:30 Aspirin (Halfprin) 81 mg DAILY PO Last administered on 12/15/16 08:33; Admin Dose 81 MG; Start 12/15/16 at 09:00 Atorvastatin Calcium (Lipitor) 20 mg QHS PO Last administered on 12/15/16 21: 27; Admin Dose 20 MG; Start 12/15/16 at 21:00 Clopidogrel Bisulfate (plaVIX) 75 mg DAILY PO Last administered on 12/15/16 08 :32; Admin Dose 75 MG; Start 12/15/16 at 09:00 Gabapentin (Neurontin) 400 mg TID PO Last administered on 12/15/16 21:27; Admin Dose 400 MG; Start 12/15/16 at 09:00 Fish Oil (Fish Oil) 2,000 mg QAM PO Last administered on 12/15/16 08:32; Admin Dose 2,000 MG; Start 12/15/16 at 09:00 Hydralazine HCl (Apresoline) 50 mg TID PO Last administered on 12/15/16 21:28 ; Admin Dose 50 MG; Start 12/15/16 at 13:00 Lisinopril (Zestril) 5 mg BID PO Last administered on 12/15/16 21:28; Admin Dose 5 MG; Start 12/15/16 at 12:30 Guaifenesin/ Codeine Phosphate 5 ml 5 ml Q4H PRN PO Cough Last administered on 12/15/16 15:27; Admin Dose 5 ML; Start 12/15/16 at 15:30 Magnesium Sulfate/ Sodium Chloride (Magnesium Sulfate/NS) 106 ml @ 35.333 mls/ hr ONCE ONCE IVPB ; Start 12/16/16 at 10:30; Stop 12/16/16 at 13:29 Insulin Glargine (Lantus) 30 unit DAILY@20 SC ; Start 12/16/16 at 20:00 ANISA GORDON NP Dec 16, 2016 09:54
[2016-12-16] MEDS: GABAPENTIN 400 MG CAP PO SCH ×3 (09:55→21:45)
[2016-12-16] MEDS: FISH OIL 1,000 MG CAP PO SCH (09:55)
[2016-12-16] MEDS: CLOPIDOGREL 75 MG TAB PO SCH (09:55)
[2016-12-16] MEDS: ASPIRIN (EC) 81 MG TAB PO SCH (09:55)
[2016-12-16] MEDS: LISINOPRIL 5 MG TAB PO SCH ×2 (09:55→21:55)
[2016-12-16] MEDS ORDERED: CEPASTAT LOZENGE MT PRN (10:00)
[2016-12-16] MEDS: GUAIFENESIN/CODEINE 5ML CUP PO PRN (10:04)
[2016-12-16] MEDS ORDERED: MAGNESIUM SULFATE 3 GM in SOD CHLORIDE 0.9% 100 ML IVPB ONE ×2 (10:30→17:00)
[2016-12-16 10:34] LABS: IRON 30 ug/dl (35-150)
[2016-12-16 10:43] LABS: TOTAL IRON BINDING CAPACITY 244 ug/dl (241-421)
--- NOTE | 2016-12-16 15:32 | CONS ---
Date/Time of Note Date/Time of Note DATE: 12/16/16 TIME: 15:29 Assessment/Plan Assessment/Plan Additional Assessment/Plan Chest pain, resolved Fevers, chills and cough CAD with history of CABG Hypertension, not controlled Dyslipidemia Thyroid dysfunction Preserved ejection fraction -Patient continues to feel better, serial cardiac enzymes remain negative, echocardiogram with preserved ejection fraction. Symptoms do not appear cardiac in origin. No further inpatient cardiac workup needed at the current time Consultation Date/Type/Reason Admit Date/Time Dec 14, 2016 at 20:32 Initial Consult Date Type of Consultation: cv 24 HR Interval Summary Free Text/Dictation Patient feeling much better, denies shortness of breath or chest pain. Denies palpitations or dizziness Exam/Review of Systems Vital Signs Vitals Vital Signs Date Time Temp Pulse Resp B/P Pulse Ox O2 Delivery O2 Flow Rate FiO2 12/16/16 12:30 67 12/16/16 12:27 98.0 18 137/78 98 12/14/16 21:30 Room Air Intake and Output 12/15/16 12/15/16 12/16/16 15:00 23:00 07:00 Intake Total 1320 ml 420 ml Balance 1320 ml 420 ml Exam No apparent distress Constitutional: alert, obese, oriented Head: normocephalic Respiratory: other (Coarse breath sounds bilaterally, no wheezing) Cardiovascular: other (S1-S2 heard), regular rate and rhythm Gastrointestinal: bowel sounds, non-tender, soft Extremities: edema (Trace) Results Result Diagram: 12/16/16 0718 12/16/16 0718 Results 24 hrs Laboratory Tests Test 12/15/16 17:16 12/15/16 21:29 12/16/16 01:56 12/16/16 07:18 Bedside Glucose 258 H 207 315 H White Blood Count 5.7 Red Blood Count 3.42 L Hemoglobin 9.8 L Hematocrit 30.1 L Mean Corpuscular Volume 88.0 Mean Corpuscular Hemoglobin 28.7 L Mean Corpuscular Hemoglobin Concent 32.6 Red Cell Distribution Width 13.0 Platelet Count 142 Mean Platelet Volume 11.9 H Neutrophils % 56.7 Lymphocytes % 29.8 Monocytes % 10.6 Eosinophils % 2.3 Basophils % 0.4 Nucleated Red Blood Cells % 0.0 Neutrophils # 3.2 Lymphocytes # 1.7 Monocytes # 0.6 Eosinophils # 0.1 Basophils # 0.0 Nucleated Red Blood Cells # 0.0 Sodium Level 132 L Potassium Level 4.5 Chloride Level 108 Carbon Dioxide Level 26 Anion Gap 3 L Blood Urea Nitrogen 18 Creatinine 1.26 H Glucose Level 245 H Calcium Level 8.7 Phosphorus Level 3.2 Magnesium Level 1.4 L Iron Level 30 L Total Iron Binding Capacity 244 Percent Iron Saturation 12 L Ferritin 52.4 Vitamin D 1,25-Dihydroxy 20.8 L Free Thyroxine 1.90 Test 12/16/16 08:11 12/16/16 12:05 12/16/16 15:16 Bedside Glucose 246 H 77 88 Medications Medications Current Medications Sodium Chloride (NS) 1,000 ml @ 75 mls/hr [id number] IV Last administered on 12/15 21:37; Admin Dose 75 MLS/HR; Start 12/14/16 at 23:15 Ondansetron HCl (Zofran Inj) 4 mg Q6H PRN IV NAUSEA AND/OR VOMITING Last administered on 12/16/16 06:23; Admin Dose 4 MG; Start 12/14/16 at 23:30 Nitroglycerin (Nitroglycerin (Sl Tab) 0.4 Mg) 1 tab Q5M PRN SL CHEST PAIN; Start 12/14/16 at 23:30 Acetaminophen (Tylenol Tab) 650 mg Q6H PRN PO PAIN LEVEL 1-3 OR FEVER; Start at 23:30 Morphine Sulfate (morphine) 2 mg Q4H PRN IV PAIN LEVEL 7-10; Start 12/14/16 at 23:30 Pantoprazole (Protonix Iv) 40 mg DAILY@06 IV Last administered on 12/16/16 05: 10; Admin Dose 40 MG; Start 12/15/16 at 06:00 Diagnostic Test (Pha) (Accu-Chek) 1 ea 02 XX ; Start 12/15/16 at 02:00 Miscellaneous Information 1 ea NOTE XX ; Start 12/14/16 at 23:45 Glucose (Glutose) 15 gm Q15M PRN PO DECREASED GLUCOSE; Start 12/14/16 at 23:45 Glucose (Glutose) 22.5 gm Q15M PRN PO DECREASED GLUCOSE; Start 12/14/16 at 23: 45 Dextrose (D50w Syringe) 25 ml Q15M PRN IV DECREASED GLUCOSE; Start 12/14/16 at 23:45 Dextrose (D50w Syringe) 50 ml Q15M PRN IV DECREASED GLUCOSE; Start 12/14/16 at 23:45 Glucagon (Glucagen) 1 mg Q15M PRN IM DECREASED GLUCOSE; Start 12/14/16 at 23:45 Glucose (Glutose) 15 gm Q15M PRN BUCCAL DECREASED GLUCOSE; Start 12/14/16 at 23 :45 Hydralazine HCl (Apresoline) 10 mg Q6H PRN IV ELEVATED SYSTOLIC BP; Start 12/15 at 00:30 Aspirin (Halfprin) 81 mg DAILY PO Last administered on 12/16/16 09:55; Admin Dose 81 MG; Start 12/15/16 at 09:00 Atorvastatin Calcium (Lipitor) 20 mg QHS PO Last administered on 12/15/16 21: 27; Admin Dose 20 MG; Start 12/15/16 at 21:00 Clopidogrel Bisulfate (plaVIX) 75 mg DAILY PO Last administered on 12/16/16 09 :55; Admin Dose 75 MG; Start 12/15/16 at 09:00 Gabapentin (Neurontin) 400 mg TID PO Last administered on 12/16/16 12:57; Admin Dose 400 MG; Start 12/15/16 at 09:00 Fish Oil (Fish Oil) 2,000 mg QAM PO Last administered on 12/16/16 09:55; Admin Dose 2,000 MG; Start 12/15/16 at 09:00 Hydralazine HCl (Apresoline) 50 mg TID PO Last administered on 12/16/16 12:57 ; Admin Dose 50 MG; Start 12/15/16 at 13:00 Lisinopril (Zestril) 5 mg BID PO Last administered on 12/16/16 09:55; Admin Dose 5 MG; Start 12/15/16 at 12:30 Guaifenesin/ Codeine Phosphate (Robitussin Ac Liquid Cup) 5 ml Q4H PRN PO Cough Last administered on 12/16/16 10:04; Admin Dose 5 ML; Start 12/15/16 at 15:30 Insulin Glargine (Lantus) 30 unit DAILY@20 SC ; Start 12/16/16 at 20:00 Phenol (Cepastat Lozenge) 1 lozenge Q1H PRN MT Sore throat; Start 12/16/16 at 10:00 Heparin Sodium (Porcine) 5000 unit 5,000 unit BID SC ; Start 12/16/16 at 21:00 Magnesium Sulfate/ Sodium Chloride (Magnesium Sulfate/NS) 106 ml @ 35.333 mls/ hr ONCE ONCE IVPB ; Start 12/16/16 at 15:30; Stop 12/16/16 at 18:29; Status UNV Garry Pollard DO Dec 16, 2016 15:32
[2016-12-16] MEDS ORDERED: INSULIN GLARGINE [LANtus] 3 ML PEN SC SCH (20:00)
[2016-12-16] MEDS: ATORVASTATIN 20 MG TAB PO SCH (21:45)
[2016-12-16] MEDS: HEPARIN 5,000 UNIT/0.5 ML VIAL SC SCH (21:46)
[2016-12-17] VITALS: BP 146/68; PULSE 69; RESP 18
[2016-12-17] MEDS ORDERED: BISACODYL (EC) 5 MG TAB PO ONE
[2016-12-17] MEDS: ACCU-CHEK XX SCH (02:00)
[2016-12-17 04:00] VITALS: BP 172/74; PULSE 67; RESP 18
[2016-12-17] MEDS: SOD CHLORIDE 0.9% 1,000 ML IV SCH (04:35)
[2016-12-17] MEDS: hydrALAzine 20 MG INJ IV PRN ×2 (05:46→11:46)
[2016-12-17] MEDS ORDERED: PANTOPRAZOLE (EC) 40 MG TAB PO SCH (06:00)
[2016-12-17 07:20] VITALS: BP 152/68; RESP 18
[2016-12-17 07:57] LABS: ADD SCAN DIFF NO
[2016-12-17 08:00] VITALS: PULSE 75
[2016-12-17 08:01] LABS: BASOPHILS % 0.4 % (0.0-2.0); EOSINOPHILS # 0.1 10^3/ul (0.0-0.5); EOSINOPHILS % 2.7 % (0.0-7.0); HEMATOCRIT 31.2 % (37.0-47.0); HEMOGLOBIN 10.1 g/dl (12.0-16.0); LYMPHOCYTES # 1.6 10^3/ul (0.8-2.9); LYMPHOCYTES % 32.9 % (15.0-51.0); MEAN CORPUSCULAR HEMOGLOBIN 28.9 pg (29.0-33.0); MEAN CORPUSCULAR HGB CONC 32.4 g/dl (32.0-37.0); MEAN CORPUSCULAR VOLUME 89.4 fl (82.0-101.0); MEAN PLATELET VOLUME 11.7 fl (7.4-10.4); MONOCYTE # 0.4 10^3/ul (0.3-0.9); MONOCYTES % 9.1 % (0.0-11.0); NEUTROPHIL # 2.6 10^3/ul (1.6-7.5); NEUTROPHILS % 54.7 % (39.0-77.0); PLATELET COUNT 136 10^3/UL (140-415); RED BLOOD COUNT 3.49 10^6/ul (4.20-5.40); RED CELL DISTRIBUTION WIDTH 13.1 % (11.5-14.5); WHITE BLOOD COUNT 4.7 10^3/ul (4.8-10.8)
[2016-12-17] MEDS: INSULIN ASPART [NOVOLOG] 3 ML PEN SC SCH ×4 (08:27→12:01)
[2016-12-17 08:32] LABS: MAGNESIUM 1.7 mg/dl (1.7-2.5); PHOSPHORUS 3.5 mg/dl (2.5-4.9)
[2016-12-17 08:48] LABS: ALBUMIN 3.2 g/dl (3.3-4.9); ALBUMIN/GLOBULIN RATIO 1.23; CALCIUM 8.8 mg/dl (8.4-10.2); CREATININE 1.21 mg/dl (0.44-1.00); POTASSIUM 4.6 mmol/L (3.5-5.1); TOTAL PROTEIN 5.8 g/dl (6.1-8.1)
[2016-12-17] MEDS: ASPIRIN (EC) 81 MG TAB PO SCH (08:57)
[2016-12-17] MEDS: FISH OIL 1,000 MG CAP PO SCH (08:58)
[2016-12-17] MEDS: LISINOPRIL 5 MG TAB PO SCH (08:58)
[2016-12-17] MEDS: CLOPIDOGREL 75 MG TAB PO SCH (08:58)
[2016-12-17] MEDS: GABAPENTIN 400 MG CAP PO SCH ×2 (08:58→11:47)
[2016-12-17] MEDS: HEPARIN 5,000 UNIT/0.5 ML VIAL SC SCH (08:59)
[2016-12-17] MEDS ORDERED: POLYETHYLENE GLYCOL 17 GM PACKET PO SCH (09:00)
[2016-12-17] MEDS ORDERED: DOCUSATE SODIUM 100 MG CAP PO SCH (09:00)
--- NOTE | 2016-12-17 11:08 | PDOCDIS ---
Discharge Instructions DIAGNOSIS Discharge Diagnosis Atypical chest pain. CONDITION Patient Condition: Guarded HOME CARE INSTRUCTIONS: Special Diet: Carb controlled FOLLOW UP/APPOINTMENTS Follow-up Plan Morgan Bocanegra MD Specialty: Internal Medicine Office Address: [address] [place] [address] [place], [place] [id number] Office OTHER ORDERS: Other Orders: 1. Take a carbohydrate controlled, low-cholesterol diet. 2. Resume home medications. Take insulin as per prescription. 3. Follow-up with your primary care physician in 1 week. If you do not have a primary care physician, please call Dr. Morgan Bocanegra's office. 4. Resume activities as tolerated. 5. Go to the nearest emergency room or call 911 if he has significant chest pain, significant shortness of breath, or any other unusual signs/symptoms. ANISA GORDON NP Dec 17, 2016 11:08
[2016-12-17] MEDS ORDERED: LISI-313 PO (11:13)
[2016-12-17] MEDS ORDERED: LANT3I SC (11:15)
[2016-12-17] MEDS ORDERED: NOVO3I SC (11:15)
[2016-12-17 11:29] VITALS: BP 162/72; RESP 17
[2016-12-17] MEDS ORDERED: BISACODYL 10 MG SUPP PR ONE (11:30)
--- NOTE | 2016-12-17 11:57 | DS ---
Date/Time of Note Date/Time of Note DATE: 12/17/16 TIME: 11:55 Discharge Summary Admission/Discharge Info Admit Date/Time Dec 14, 2016 at 20:32 Discharge Date/Time Discharge Diagnosis 1. Chest pain. Acute coronary syndrome ruled out. 2. Type 2 diabetes mellitus. Uncontrolled. Hemoglobin A1c 13.8. 3. CAD with history of CABG in the past. 4. Dyslipidemia. 5. Essential hypertension. . 6. Normocytic, normochromic anemia. 7. Chronic kidney disease. Patient Condition: Stable Consults 1. Garry Pollard DO, Cardiology. Procedures CXR IMPRESSION: No evidence for active cardiopulmonary disease. 2D Echocardiogram Conclusions Normal left ventricular systolic function. Normal left ventricular cavity size. Normal left ventricular wall thickness. Ejection fraction is visually estimated at 60 %. Tissue Doppler/Mitral Doppler indices are consistent with impaired relaxation (Stage I diastolic dysfunction). Normal right ventricular size. Normal right ventricular systolic function. The left atrium is normal in size. The right atrium is normal in size. No significant valvular stenosis or regurgitation seen. Normal pericardium with no significant pericardial effusion. Hx of Present Illness Chief complaint: Chest pain, generalized weakness This 66-year-old female presents for chest pain that is substernal nonradiating accompanied with shortness of breath is been going on since earlier today. She also has felt chills and generalized weakness. Patient recently returned from [place] and when she arrived home her daughter noticed that she was not appearing well and her blood sugars were uncontrolled and she brought her into the ED. She describes her chest pain as a dull pressure-like sensation. It is nonradiating. Denies any nausea or vomiting. Allergies: NKDA Medications: See [facility] Hospital Course The patient was admitted to inpatient setting. Serial troponins were ordered. A 2D echocardiogram was ordered. Cardiology consult was obtained. The patient' s serial troponins remained negative. Patient's 2D echocardiogram showed preserved left ventricular ejection fraction. The patient was ruled out for any underlying acute coronary syndrome. The patient has a prior history of CAD status post CABG in the past. Patient was maintained on dual antiplatelet therapy. The patient's chest pain could have been most probably musculoskeletal in origin. The patient had very uncontrolled blood sugars. The patient had a glucose level of 664 in the emergency room. The patient had no evidence of any DKA. The patient's hemoglobin A1c was found to be 13.8. The patient was started on sliding scale insulin along with pre-meal insulin and basal insulin. The patient's insulin dosing was adjusted multiple times to obtain optimal blood sugar control. The patient was seen by extension educator and was instructed on dietary restrictions as well as appropriate use of a glucometer. The patient has underlying chronic kidney disease. The patient's BUN and creatinine remained stable. Nephrotoxic drugs were used with caution. The patient has underlying essential hypertension. The patient's blood pressure was not well controlled during the initial part of the patient's hospital course. The patient's antihypertensives were adjusted by cardiology with improvement the patient's blood pressure. The patient's cough, sore throat, and congestion was resolved. The patient has no evidence of any pneumonia or other infectious etiology. The patient is stable to be discharged home. The patient had some constipation that was resolved with stool softeners and laxatives. Discharge Instructions 1. Take a carbohydrate controlled, low-cholesterol diet. 2. Resume home medications. Take insulin as per prescription. 3. Follow-up with your primary care physician in 1 week. If you do not have a primary care physician, please call Dr. Morgan Bocanegra's office. 4. Resume activities as tolerated. 5. Go to the nearest emergency room or call 911 if he has significant chest pain, significant shortness of breath, or any other unusual signs/symptoms. The patient verbalized understanding of her discharge instructions. At this time I would like to thank Dr. Pollard for seeing the patient and providing clinical recommendations. Case discussed with Dr. Garces [place] Meds Active Scripts Insulin Glargine* (Lantus*) 100 Unit/Ml Soln, 30 UNIT SC DAILY@20 for 30 Days Prov:ANISA GORDON NP 12/17/16 Insulin Aspart* (Novolog Insulin Pen*) 100 Unit/Ml Soln, 11 UNIT SC WITH MEALS for 30 Days Prov:ANISA GORDON NP 12/17/16 Lisinopril* (Lisinopril*) 5 Mg Tablet, 5 MG PO BID for 30 Days, TAB Prov:ANISA GORDON NP 12/17/16 Reported Medications Hydralazine Hcl* (Hydralazine Hcl*) 50 Mg Tab, 50 MG PO BID, #60 TAB 12/14/16 Atorvastatin Calcium* (Atorvastatin Calcium*) 20 Mg Tablet, 20 MG PO QHS, #30 TAB 12/14/16 Stacy-3 Acid Ethyl Esters (Lovaza) 1 Gm Capsule, 2 GM PO QAM, CAP 12/14/16 Acetaminophen with Codeine (Acetaminophen-Cod #3 Tablet) 1 Each Tablet, 1 TAB PO BID, #20 TAB 12/14/16 Omeprazole* (Omeprazole*) 20 Mg Capsule.dr, 20 MG PO DAILY, #30 CAP 12/14/16 Gabapentin* (Gabapentin*) 400 Mg Capsule, 400 MG PO TID, #90 CAP 12/14/16 Clopidogrel Bisulfate* (Clopidogrel Bisulfate*) 75 Mg Tablet, 75 MG PO DAILY, # 30 TAB 12/14/16 Aspirin* (Aspirin* EC) 81 Mg Tablet.dr, 81 MG PO DAILY, TAB 12/14/16 Discontinued Reported Medications Furosemide* (Furosemide*) 40 Mg Tablet, 40 MG PO BID, TAB 12/14/16 Albiglutide (Tanzeum) 30 Mg/0.5 Ml Pen.injctr, 30 MG SQ QTUESDAY 12/14/16 Insulin Lispro (Humalog) 100 Unit/1 Ml Cartridge, 11 UNIT SQ BID TAKE BEFORE LUNCH AND DINNER 12/14/16 Insulin Glargine* (Lantus*) 100 Unit/Ml Soln, 30 UNIT SC QAM, #1 VIAL 12/14/16 Gabapentin* (Gabapentin*) 100 Mg Capsule, 500 MG PO DAILY, #90 CAP 11/19/15 Insulin Glargine* (Lantus*) 100 Unit/Ml Soln, 70 UNITS SQ PM 10/22/13 Insulin Lispro (Humalog) 100 U/Ml Cartridge, 10 SQ PM 09/27/13 Insulin Lispro (Humalog) 100 U/Ml Cartridge, 13 SQ AM 09/27/13 Valsartan* (Diovan*) 40 Mg Tablet, 40 MG PO DAILY 09/27/13 Clopidogrel Bisulfate (Clopidogrel) 75 Mg Tablet, 75 MG PO DAILY 09/27/13 Fish Oil* (Fish Oil*) 1,000 Mg Cap, 1000 MG PO DAILY, CAP 09/27/13 Albuterol Sulfate* (Proair HFA*) 8.5 Gm Hfa.aer.ad, 1 PUFF IH Y for SHORTNESS OF BREATH 09/27/13 Timolol Maleate* (Timoptic*) 5 Ml Drops, 1 DROP BOTH EYES BID 09/27/13 Levalbuterol* (Xopenex* HFA) 15 Gm Inha, 3 INH INH TID 07/17/12 Omeprazole* (Prilosec*) 40 Mg Capsule.dr, 20 MG PO DAILY 07/17/12 Lovastatin (Lovastatin) 40 Mg Tablet, 40 MG PO DAILY 07/17/12 Levothyroxine Sodium (Levothroid) 75 Mcg Tablet, 75 MCG PO DAILY 07/17/12 Insulin Glargine,Hum.rec.anlog (Lantus) 100 U/Ml Vial, 90 UNITS SC AM, 0 Refills 07/17/12 Aspirin Ec (Aspir 81) 81 Mg Tablet.dr, 1 TAB PO DAILY, 0 Refills 03/29/10 Discontinued Scripts Hydrocodone Bit-Acetaminophen* (Chalmers*) 5-325 Mg Tab, 1 TAB PO Q6 Y for SEVERE PAIN LEVEL 7-10, #20 TAB Prov:NADEEM RICO NP 08/05/15 Follow-up Plan Please follow-up with your primary care physician in 1 week. If you do not have a primary care physician, please call Dr. Morgan Bocanegra's office. Primary Care Provider Outside MD. Time spent on discharge: > 30 minutes Pending Labs Laboratory Tests Test 12/16/16 12:05 12/16/16 15:16 12/16/16 18:09 12/16/16 21:43 Bedside Glucose 77mg/dL (70-220) 88mg/dL (70-220) 121mg/dL (70-220) 104mg/dL (70-220) Test 12/17/16 03:22 12/17/16 07:08 12/17/16 08:23 Bedside Glucose 141mg/dL (70-220) 217mg/dL (70-220) White Blood Count 4.710^3/ul (4.8-10.8) Red Blood Count 3.4910^6/ul (4.20-5.40) Hemoglobin 10.1g/dl (12.0-16.0) Hematocrit 31.2% (37.0-47.0) Mean Corpuscular Volume 89.4fl (82.0-101.0) Mean Corpuscular Hemoglobin 28.9pg (29.0-33.0) Mean Corpuscular Hemoglobin Concent 32.4g/dl (32.0-37.0) Red Cell Distribution Width 13.1% (11.5-14.5) Platelet Count 30428^3/UL (140-415) Mean Platelet Volume 11.7fl (7.4-10.4) Neutrophils % 54.7% (39.0-77.0) Lymphocytes % 32.9% (15.0-51.0) Monocytes % 9.1% (0.0-11.0) Eosinophils % 2.7% (0.0-7.0) Basophils % 0.4% (0.0-2.0) Nucleated Red Blood Cells % 0.0/100WBC (0.0-0.0) Neutrophils # 2.610^3/ul (1.6-7.5) Lymphocytes # 1.610^3/ul (0.8-2.9) Monocytes # 0.410^3/ul (0.3-0.9) Eosinophils # 0.110^3/ul (0.0-0.5) Basophils # 0.010^3/ul (0.0-0.1) Nucleated Red Blood Cells # 0.010^3/ul (0.0-0.0) Sodium Level 135mmol/L (135-144) Potassium Level 4.6mmol/L (3.5-5.1) Chloride Level 108mmol/L (97-110) Carbon Dioxide Level 22mmol/L (21-31) Anion Gap 10 (8-16) Blood Urea Nitrogen 18mg/dl (7-20) Creatinine 1.21mg/dl (0.44-1.00) Glucose Level 213mg/dl (70-220) Calcium Level 8.8mg/dl (8.4-10.2) Phosphorus Level 3.5mg/dl (2.5-4.9) Magnesium Level 1.7mg/dl (1.7-2.5) Total Bilirubin 0.0mg/dl (0.2-1.3) Direct Bilirubin 0.00mg/dl (0.00-0.20) Indirect Bilirubin 0.0mg/dl (0-1.1) Aspartate Amino Transf (AST/SGOT) 26IU/L (15-46) Alanine Aminotransferase (ALT/SGPT) 31IU/L (13-69) Alkaline Phosphatase 84IU/L (42-121) Total Protein 5.8g/dl (6.1-8.1) Albumin 3.2g/dl (3.3-4.9) Globulin 2.60g/dl (1.3-3.2) Albumin/Globulin Ratio 1.23 ANISA GORDON NP Dec 17, 2016 11:57
[2016-12-17 12:00] VITALS: PULSE 71
--- NOTE | 2016-12-17 12:27 | CONS ---
Date/Time of Note Date/Time of Note DATE: 12/17/16 TIME: 12:25 Assessment/Plan Assessment/Plan Additional Assessment/Plan Chest pain, resolved Fevers, chills and cough CAD with history of CABG Hypertension, not controlled Dyslipidemia Thyroid dysfunction Preserved ejection fraction -Patient continues to feel better, serial cardiac enzymes remain negative, echocardiogram with preserved ejection fraction. Symptoms do not appear cardiac in origin. Blood pressure remains elevated and not on beta-fatimah ( history of CAD), would start if no contraindication. No further inpatient cardiac workup needed at the current time Consultation Date/Type/Reason Admit Date/Time Dec 14, 2016 at 20:32 Type of Consultation: cv 24 HR Interval Summary Free Text/Dictation Patient seen and examined. Denies chest pain or shortness of breath, feeling better Exam/Review of Systems Vital Signs Vitals Vital Signs Date Time Temp Pulse Resp B/P Pulse Ox O2 Delivery O2 Flow Rate FiO2 12/17/16 12:00 71 12/17/16 11:29 98.1 17 162/72 96 12/14/16 21:30 Room Air Intake and Output 12/16/16 12/16/16 12/17/16 15:00 23:00 07:00 Intake Total 106 ml 1650 ml 1325 ml Balance 106 ml 1650 ml 1325 ml Exam No apparent distress Constitutional: alert, obese, oriented Head: normocephalic Respiratory: other (Coarse breath sounds bilaterally, no wheezing) Cardiovascular: other (S1-S2 heard), regular rate and rhythm Gastrointestinal: bowel sounds, non-tender, soft Extremities: other (Trace) Results Result Diagram: 12/17/16 0708 12/17/16 0708 Results 24 hrs Laboratory Tests Test 12/16/16 15:16 12/16/16 18:09 12/16/16 21:43 12/17/16 03:22 Bedside Glucose 88 121 104 141 Test 12/17/16 07:08 12/17/16 08:23 12/17/16 11:45 White Blood Count 4.7 L Red Blood Count 3.49 L Hemoglobin 10.1 L Hematocrit 31.2 L Mean Corpuscular Volume 89.4 Mean Corpuscular Hemoglobin 28.9 L Mean Corpuscular Hemoglobin Concent 32.4 Red Cell Distribution Width 13.1 Platelet Count 136 L Mean Platelet Volume 11.7 H Neutrophils % 54.7 Lymphocytes % 32.9 Monocytes % 9.1 Eosinophils % 2.7 Basophils % 0.4 Nucleated Red Blood Cells % 0.0 Neutrophils # 2.6 Lymphocytes # 1.6 Monocytes # 0.4 Eosinophils # 0.1 Basophils # 0.0 Nucleated Red Blood Cells # 0.0 Sodium Level 135 Potassium Level 4.6 Chloride Level 108 Carbon Dioxide Level 22 Anion Gap 10 # Blood Urea Nitrogen 18 Creatinine 1.21 H Glucose Level 213 Calcium Level 8.8 Phosphorus Level 3.5 Magnesium Level 1.7 Total Bilirubin 0.0 L Direct Bilirubin 0.00 Indirect Bilirubin 0.0 Aspartate Amino Transf (AST/SGOT) 26 Alanine Aminotransferase (ALT/SGPT) 31 Alkaline Phosphatase 84 Total Protein 5.8 L Albumin 3.2 L Globulin 2.60 Albumin/Globulin Ratio 1.23 Bedside Glucose 217 161 Medications Medications Current Medications Sodium Chloride (NS) 1,000 ml @ 75 mls/hr [id number] IV Last administered on 12/16 23:52; Admin Dose 75 MLS/HR; Start 12/14/16 at 23:15 Ondansetron HCl (Zofran Inj) 4 mg Q6H PRN IV NAUSEA AND/OR VOMITING Last administered on 12/16/16 06:23; Admin Dose 4 MG; Start 12/14/16 at 23:30 Nitroglycerin (Nitroglycerin (Sl Tab) 0.4 Mg) 1 tab Q5M PRN SL CHEST PAIN; Start 12/14/16 at 23:30 Acetaminophen (Tylenol Tab) 650 mg Q6H PRN PO PAIN LEVEL 1-3 OR FEVER; Start at 23:30 Morphine Sulfate (morphine) 2 mg Q4H PRN IV PAIN LEVEL 7-10; Start 12/14/16 at 23:30 Diagnostic Test (Pha) (Accu-Chek) 1 ea 02 XX Last administered on 12/17/16 02: 00; Admin Dose 1 EA; Start 12/15/16 at 02:00 Miscellaneous Information 1 ea NOTE XX ; Start 12/14/16 at 23:45 Glucose (Glutose) 15 gm Q15M PRN PO DECREASED GLUCOSE; Start 12/14/16 at 23:45 Glucose (Glutose) 22.5 gm Q15M PRN PO DECREASED GLUCOSE; Start 12/14/16 at 23: 45 Dextrose (D50w Syringe) 25 ml Q15M PRN IV DECREASED GLUCOSE; Start 12/14/16 at 23:45 Dextrose (D50w Syringe) 50 ml Q15M PRN IV DECREASED GLUCOSE; Start 12/14/16 at 23:45 Glucagon (Glucagen) 1 mg Q15M PRN IM DECREASED GLUCOSE; Start 12/14/16 at 23:45 Glucose (Glutose) 15 gm Q15M PRN BUCCAL DECREASED GLUCOSE; Start 12/14/16 at 23 :45 Hydralazine HCl (Apresoline) 10 mg Q6H PRN IV ELEVATED SYSTOLIC BP Last administered on 12/17/16 11:46; Admin Dose 10 MG; Start 12/15/16 at 00:30 Aspirin (Halfprin) 81 mg DAILY PO Last administered on 12/17/16 08:57; Admin Dose 81 MG; Start 12/15/16 at 09:00 Atorvastatin Calcium (Lipitor) 20 mg QHS PO Last administered on 12/16/16 21: 45; Admin Dose 20 MG; Start 12/15/16 at 21:00 Clopidogrel Bisulfate (plaVIX) 75 mg DAILY PO Last administered on 12/17/16 08 :58; Admin Dose 75 MG; Start 12/15/16 at 09:00 Gabapentin (Neurontin) 400 mg TID PO Last administered on 12/17/16 11:47; Admin Dose 400 MG; Start 12/15/16 at 09:00 Fish Oil (Fish Oil) 2,000 mg QAM PO Last administered on 12/17/16 08:58; Admin Dose 2,000 MG; Start 12/15/16 at 09:00 Hydralazine HCl (Apresoline) 50 mg TID PO Last administered on 12/17/16 08:58 ; Admin Dose 50 MG; Start 12/15/16 at 13:00 Lisinopril (Zestril) 5 mg BID PO Last administered on 12/17/16 08:58; Admin Dose 5 MG; Start 12/15/16 at 12:30 Guaifenesin/ Codeine Phosphate (Robitussin Ac Liquid Cup) 5 ml Q4H PRN PO Cough Last administered on 12/16/16 10:04; Admin Dose 5 ML; Start 12/15/16 at 15:30 Insulin Glargine (Lantus) 30 unit DAILY@20 SC Last administered on 12/16/16 21 :48; Admin Dose 30 UNIT; Start 12/16/16 at 20:00 Phenol (Cepastat Lozenge) 1 lozenge Q1H PRN MT Sore throat; Start 12/16/16 at 10:00 Heparin Sodium (Porcine) (Heparin (5000 Units/0.5 ml)) 5,000 unit BID SC Last administered on 12/17/16 08:59; Admin Dose 5,000 UNIT; Start 12/16/16 at 21:00 Pantoprazole (Protonix Tab) 40 mg DAILY@06 PO Last administered on 12/17/16 05 :46; Admin Dose 40 MG; Start 12/17/16 at 06:00 Docusate Sodium (Colace) 100 mg BID PO Last administered on 12/17/16 08:58; Admin Dose 100 MG; Start 12/17/16 at 09:00 Polyethylene Glycol (Miralax) 17 gm BID PO Last administered on 12/17/16 08:57 ; Admin Dose 17 GM; Start 12/17/16 at 09:00 Garry Pollard DO Dec 17, 2016 12:27
[2016-12-17] MEDS ORDERED: METOPROLOL 25 MG TAB PO SCH (13:00)
== END 2016-12-17 14:20 | disposition home or self-care (01) | DRG 313 ==
LOC: E/R 18:11 → TEL 20:32
PROVIDERS: ADMIT Family Medicine; ATTEND Family Medicine
DX: R07.9 Chest pain, unspecified (principal); I25.10 Atherosclerotic heart disease of native coronary artery without angina pectoris; E11.22 Type 2 diabetes mellitus with diabetic chronic kidney disease; E78.5 Hyperlipidemia, unspecified; D64.9 Anemia, unspecified; I12.9 Hypertensive chronic kidney disease with stage 1 through stage 4 chronic kidney disease, or unspecified chronic kidney disease; E11.65 Type 2 diabetes mellitus with hyperglycemia; N18.9 Chronic kidney disease, unspecified; E03.9 Hypothyroidism, unspecified; Z79.4 Long term (current) use of insulin; Z95.1 Presence of aortocoronary bypass graft
CPT/HCPCS: 36415; 71010; 80048; 80053; 80061; 82306; 82550; 82553; 82652; 82728; 82962; 83036; 83540; 83690; 83735; 83880; 84100; 84439; 84443; 84484; 85025; 85610; 85730; 93005; 93306; 96372; 96374; C9113; J0360; J1644; J1815; J2405; J3475; J7030

== ENCOUNTER 2016-12-23 19:10 | Emergency (ER) | payer OTHER ==
[~2016-12-23] VITALS: Ht 154.9 cm; Wt 91.4 kg
[~2016-12-23 19:10] MED LIST changes: +ACET1TAB40 PO; -ALBU8.5H3 IH; -ASPI-535 PO; +ASPI-664 PO; +ATOR20TA38 PO; -CLOP75TA27 PO; +CLOP75TA4 PO; -GABA100C14 PO; +GABA400C14 PO; -HYDR-3498 PO; +HYDR-3672 PO; -INSU100C SQ; -INSU100V19 SC; +LANT3I SC; -LANT3I SQ; -LEVA15HF6 INH; -LEVO75TA59 PO; +LISI-313 PO; -MEVA40 PO; +NOVO3I SC; -OMEG-135 PO; +OMEG1CAP2 PO; +OMEP20CA16 PO; -OMEP40CA3 PO; -TIMO5DRO30 BOTH EYES; -VALS40TA2 PO
[2016-12-23 19:14] VITALS: Ht 154.9 cm; Wt 91.4 kg
--- NOTE | 2016-12-23 20:00 | ERA ---
ER Documentation Chief Complaint Date/Time DATE: 12/23/16 TIME: 19:56 Chief Complaint chronic pain/weakness right leg. denies injury (FRAN CARRASCO PA-C) HPI Patient presents with chronic pain of the right extremity x months described as burning and located around the R knee and hip. Denies any trauma. [place]er- speaking and the daughter is the electric scoop operator seems reliable. Patient has a DVT in the past. Denies any shortness of breath, or change in pain over the past week. Patient came in today because of the persistence of symptoms and that the family doctor is not doing anything about them. As well as mild increase in burning sensation. (FRAN CARRASCO PA-C) ROS All systems reviewed and are negative except as per history of present illness. (FRAN CARRASCO PA-C) Medications Home Meds Active Scripts Insulin Glargine* (Lantus*) 100 Unit/Ml Soln, 30 UNIT SC DAILY@20 for 30 Days Prov:ANISA GORDON NP 12/17/16 Insulin Aspart* (Novolog Insulin Pen*) 100 Unit/Ml Soln, 11 UNIT SC WITH MEALS for 30 Days Prov:ANISA GORDON NP 12/17/16 Lisinopril* (Lisinopril*) 5 Mg Tablet, 5 MG PO BID for 30 Days, TAB Prov:ANISA GORDON NP 12/17/16 Reported Medications Hydralazine Hcl* (Hydralazine Hcl*) 50 Mg Tab, 50 MG PO BID, #60 TAB 12/14/16 Atorvastatin Calcium* (Atorvastatin Calcium*) 20 Mg Tablet, 20 MG PO QHS, #30 TAB 12/14/16 Mobile-3 Acid Ethyl Esters (Lovaza) 1 Gm Capsule, 2 GM PO QAM, CAP 12/14/16 Acetaminophen with Codeine (Acetaminophen-Cod #3 Tablet) 1 Each Tablet, 1 TAB PO BID, #20 TAB 12/14/16 Omeprazole* (Omeprazole*) 20 Mg Capsule.dr, 20 MG PO DAILY, #30 CAP 12/14/16 Gabapentin* (Gabapentin*) 400 Mg Capsule, 400 MG PO TID, #90 CAP 12/14/16 Clopidogrel Bisulfate* (Clopidogrel Bisulfate*) 75 Mg Tablet, 75 MG PO DAILY, # 30 TAB 12/14/16 Aspirin* (Aspirin* EC) 81 Mg Tablet.dr, 81 MG PO DAILY, TAB 7/11/17 Discontinued Reported Medications Furosemide* (Furosemide*) 40 Mg Tablet, 40 MG PO BID, TAB 12/14/16 Albiglutide (Tanzeum) 30 Mg/0.5 Ml Pen.injctr, 30 MG SQ QTUESDAY 12/14/16 Insulin Lispro (Humalog) 100 Unit/1 Ml Cartridge, 11 UNIT SQ BID TAKE BEFORE LUNCH AND DINNER 12/14/16 Insulin Glargine* (Lantus*) 100 Unit/Ml Soln, 30 UNIT SC QAM, #1 VIAL 12/14/16 Allergies Allergies: Coded Allergies: No Known Drug Allergies (Verified Allergy, Unknown, 12/23/16) PMhx/Soc History of Surgery: Yes (CABG 2002) Anesthesia Reaction: No Hx Neurological Disorder: No Hx Respiratory Disorders: No Hx Cardiac Disorders: Yes (HTN, CAD) Hx Psychiatric Problems: No Hx Miscellaneous Medical Probl: No Hx Alcohol Use: No Hx Substance Use: No Hx Tobacco Use: No Smoking Status: Never smoker (FRAN CARRASCO PA-C) Physical Exam Vitals Vital Signs Date Time Temp Pulse Resp B/P Pulse Ox O2 Delivery O2 Flow Rate FiO2 12/23/16 20:07 76 194/79 199/89 173/56 12/23/16 19:14 97.7 94 20 173/77 97 (NANCY MCCAULEY PA-C) Physical Exam Const: Overweight. [place]er-speaking. No acute distress. Wheelchair on presentation. Full range of motion. No tenderness to palpation. Head: Normocephalic, Atraumatic. Eyes: Non-injected; No discharge or foreign body. Ears: Normal External Ears. Nose: Normal external nose; no discharge, septal deviation, or sinus tenderness. Oral: No oral edema visualized. Mucous membranes moist and pink. Neck: No cervical lymphadenopathy, masses or goiter palpated. Trachea midline. Supple ~ No meningismus. Pulm: Good air movement in upper and lower respiratory tracts. No dyspnea, stridor, tripoding or drooling. Clear to auscultation bilaterally. Cardio: Regular rate and rhythm; No murmurs, gallops or rubs auscultated. No JVD grossly observed. Radial and posterior tibial pulses 2+ bilaterally. No cyanosis. Capillary refill less than 2 seconds. Abd: Soft, non tender, non distended. No guarding, masses. Normal bowel sounds. MS: Normal motor strength, normal tone with gross examination. Skin: No petechiae or rashes. No ulcer, induration, jaundice. Good turgor. Back: No midline, flank or CVA tenderness. Ext: No edema or palpable cord. Normal movement of all extremities grossly observed. Neur: Awake, alert and oriented x3. Neurovascularly intact bilaterally. Psych: Normal Mood and Affect. (FRAN CARRASCO PA-C) Results 24 hrs Current Medications Medications (Trade) Dose Ordered Sig/Vicenta Route PRN Reason Start Time Stop Time Status Last Admin Dose Admin Acetaminophen/ Hydrocodone Bitart (Camp (5/325)) 1 tab ONCE ONCE PO 12/23/16 21:00 12/23/16 21:01 DC 12/23/16 20:58 Ondansetron HCl (Zofran Odt) 4 mg ONCE STAT ODT 12/23/16 20:38 12/23/16 20:39 DC 12/23/16 20:58 (NANCY MCCAULEY PA-C) Procedures/MDM Medical Decision Making: Patient's pain is most likely consistent with a sprain , it can also be from possible neuropathy from diabetes. No suspicion for other nv compromise. Patient has intact sensation and circulation of the affected extremity. There is low suspicion for septic arthritis. Patient did not have any trauma on affected area. Pt will be ordered US due to hx of DVT and significant cardiac hx. Pt will be handed off to Nancy Gaffney PA-C. (FRAN CARRASCO PA-C) PROCEDURE: Ultrasound of the bilateral lower extremity venous system. CLINICAL INDICATION: Bilateral leg pain and swelling, deep venous thrombosis TECHNIQUE: Burroughs scale with and without compression, color doppler, spectral doppler of the venous system of the bilateral lower extremities was performed. Venous augmentation maneuvers were utilized. COMPARISON: 09/27/2013 FINDINGS: RIGHT: Common femoral vein: Patent. Femoral vein: Patent. Popliteal vein: Patent. Calf veins: Patent. No soft tissue abnormalities are identified. LEFT: Common femoral vein: Patent. Femoral vein: Patent. Popliteal vein: Patent. Calf veins: Patent. No soft tissue abnormalities are identified. IMPRESSION: No evidence of a deep vein thrombosis within the bilateral lower extremities. RPTAT: AADD .Adrian Rosenthal MD, Date Time Electronically viewed and signed by .Adrian Rosenthal MD, on 12/23/2016 21:00 .B/ CC: NANCY MCCAULEY PA-C Bilateral lower extremity Doppler ultrasound was negative for acute DVT. Patient able to bear full weight, ambulate, and exhibits good distal sensation and perfusion. I agree with above differential diagnosis of arthritis versus sprain versus diabetic nerve pain. Patient to follow-up with electronic security specialist for referral to physical therapy or possible MRI imaging. Resources provided. Patient received 1 dose of pain medication while in the emergency department and reports improvement of symptoms. Patient denies any abdominal pain, fever, dysuria, hematuria, shortness of breath, or chest pain. Her vital signs were reviewed. Patient not tachycardic and non-hypoxic upon arrival. At this time low suspicion for acute DVT or PE. Patient was provided with copies of imaging studies. Based on patient's history of present illness and physical examination the decision was made to discharge. The patient was re-evaluated after ED treatment and stabilizing measures, and symptoms have improved. There is no evidence of life threatening injuries or illnesses at this time. On re-examination, patient resting in no distress, stable vital signs, reports feeling better and safe for discharge with outpatient follow up with PMD for orthopedic referral in 1-2 days. Patient given return precautions. (NANCY MCCAULEY PA-C) Departure Diagnosis: Primary Impression: Pain of right leg Condition: Stable Additional Instructions: Pt handed off to Nancy Gaffney PA-C. FRAN CARRASCO PA-C Dec 23, 2016 20:00 NANCY MCCAULEY PA-C Dec 23, 2016 21:29
[2016-12-23] MEDS ORDERED: ONDANSETRON (ODT) 4 MG TAB ODT STA (20:38)
[2016-12-23] MEDS ORDERED: HYDROCODONE/APAP (5/325) TAB PO ONE (21:00)
--- NOTE | 2016-12-23 21:01 | RADRPT ---
PROCEDURE: Ultrasound of the bilateral lower extremity venous system. CLINICAL INDICATION: Bilateral leg pain and swelling, deep venous thrombosis TECHNIQUE: Burroughs scale with and without compression, color doppler, spectral doppler of the venous system of the bilateral lower extremities was performed. Venous augmentation maneuvers were utilized . COMPARISON: 09/27/2013 FINDINGS: RIGHT: Common femoral vein: Patent. Femoral vein: Patent. Popliteal vein: Patent. Calf veins: Patent. No soft tissue abnormalities are identified. LEFT: Common femoral vein: Patent. Femoral vein: Patent. Popliteal vein: Patent. Calf veins: Patent. No soft tissue abnormalities are identified. IMPRESSION: No evidence of a deep vein thrombosis within the bilateral lower extremities. RPTAT: AADD .Adrian Rosenthal MD, MD Date Time Electronically viewed and signed by .Adrian Rosenthal MD, on 12/23/2016 21:00 .B/
[2016-12-23] MEDS ORDERED: IBUP-1542 PO (21:31)
[2016-12-23] MEDS ORDERED: HYDR-906 PO (21:31)
[2016-12-23] MEDS ORDERED: CYCL5TAB PO (21:31)
[2016-12-23 21:55] VITALS: BP 188/81; PULSE 69; RESP 20; TEMP 98
== END 2016-12-23 21:55 | disposition home or self-care (01) ==
LOC: FTE 19:10
DX: M79.604 Pain in right leg (principal); I10 Essential (primary) hypertension; I25.10 Atherosclerotic heart disease of native coronary artery without angina pectoris; E11.9 Type 2 diabetes mellitus without complications; Z79.01 Long term (current) use of anticoagulants; Z79.4 Long term (current) use of insulin; Z79.82 Long term (current) use of aspirin; Z95.1 Presence of aortocoronary bypass graft
CPT/HCPCS: 93970; 99284

== ENCOUNTER 2017-09-25 21:15 | Emergency (ER) | END 2017-09-26 02:59 | disposition home or self-care (01) ==

== ENCOUNTER 2018-11-22 19:56 | Emergency (ER) | payer OTHER ==
[~2018-11-22] VITALS: Ht 154.9 cm; Wt 93.6 kg
[~2018-11-22 19:56] MED LIST changes: -ASPI-664 PO; +ASPI-817 PO; +CLOP75TA19 PO; -CLOP75TA4 PO; +CYCL5TAB PO; +HYDR-4011 PO; +IBUP-1542 PO; +NAPR-688 PO; +NITR-58 PO
[2018-11-22 20:25] VITALS: BP 118/56; PULSE 73; RESP 24; Ht 154.9 cm; Wt 93.6 kg
[2018-11-22] MEDS ORDERED: DEXAMETHASONE 10 MG/ML 1 ML INJ IM ONE (22:00)
[2018-11-22] MEDS ORDERED: traMADol 50 MG TAB PO ONE (22:00)
--- NOTE | 2018-11-22 22:07 | ERD ---
ER Documentation Chief Complaint Chief Complaint l LOW BACK PAIN RADIATING DOWN LEG HPI 68-year-old female with past medical history of diabetes type 2, hypertension, [place] x2 status post bypass, CKD who presents with complaint of lower back pain with radiation to her left lower lower extremity. Pain has been acutely worsening over the past 3 days with associated left foot tingling. She does suffer from diabetic neuropathy and currently taking Lyrica. Patient has had difficulty ambulating secondary to pain. She otherwise denies urinary or bowel incontinence, lower extremity weakness, chest pain, headache, dizziness, shortness of breath, dyspnea, nausea, vomiting, diarrhea, abdominal pain, ur inary symptoms. She uses a cane to ambulate. At time of examination patient unable to take more than 4 steps without difficulty in examination room. ROS All systems reviewed and are negative except as per history of present illness. Medications Home Meds Active Scripts Cephalexin* (Keflex*) 500 Mg Capsule, 500 MG PO BID for 7 Days, CAP Prov:DESHAWN SEGOVIAC 11/22/18 Naproxen* (Naprosyn*) 500 Mg Tablet, 500 MG PO BID PRN for PAIN AND/OR INFLAMMATION, #30 TAB Prov:DESHAWN SEGOVIAC 11/22/18 Prednisone* (Prednisone*) 20 Mg Tab, 40 MG PO DAILY for 4 Days, TAB Prov:DESHAWN SEGOVIAC 11/22/18 Hydrocodone/Acetaminophen ([place] 5-325 Tablet) 1 Each Tablet, 1 EACH PO Q6, #8 TAB Prov:JOHNSON VERA DO 09/26/17 Naproxen* (Naproxen*) 500 Mg Tablet, 500 MG PO BID PRN for PAIN, #14 TAB Prov:JOHNSON VERA DO 09/26/17 Nitrofurantoin Monohyd Macrocr* (Macrobid*) 100 Mg Capsr, 100 MG PO HS for 7 Days, CAP Prov:JOHNSON VERA DO 09/26/17 Ibuprofen* (Motrin*) 600 Mg Tab, 600 MG PO Q6H PRN for PAIN, #30 TAB Prov:VIOLETA MCCAULEY PA-C 12/23/16 Cyclobenzaprine Hcl* (Cyclobenzaprine Hcl*) 5 Mg Tablet, 5 MG PO Q8H PRN for PAIN, #60 TAB Prov:VIOLETA MCCAULEYC 12/23/16 Hydrocodone/Acetaminophen ([place]apier 5-325 Tablet) 1 Each Tablet, 1 TAB PO Q6H PRN for PAIN, #20 TAB Prov:VIOLETA MCCAULEY PA-C 12/23/16 Insulin Glargine* (Lantus*) 100 Unit/Ml Soln, 30 UNIT SC DAILY@20 for 30 Days Prov:ANISA GORDON NP 12/17/16 Insulin Aspart* (Novolog Insulin Pen*) 100 Unit/Ml Soln, 11 UNIT SC WITH MEALS for 30 Days Prov:ANISA GORDON NP 12/17/16 Lisinopril* (Lisinopril*) 5 Mg Tablet, 5 MG PO BID for 30 Days, TAB Prov:ANISA GORDON NP 12/17/16 Reported Medications Hydralazine Hcl* (Hydralazine Hcl*) 50 Mg Tab, 50 MG PO BID, #60 TAB 12/14/16 Atorvastatin Calcium* (Atorvastatin Calcium*) 20 Mg Tablet, 20 MG PO QHS, #30 TAB 12/14/16 [place]-3 Acid Ethyl Esters (Lovaza) 1 Gm Capsule, 2 GM PO QAM, CAP 12/14/16 Acetaminophen with Codeine (Acetaminophen-Cod #3 Tablet) 1 Each Tablet, 1 TAB PO BID, #20 TAB 12/14/16 Omeprazole* (Omeprazole*) 20 Mg Capsule.dr, 20 MG PO DAILY, #30 CAP 12/14/16 Gabapentin* (Gabapentin*) 400 Mg Capsule, 400 MG PO TID, #90 CAP 12/14/16 Clopidogrel Bisulfate* (Clopidogrel Bisulfate*) 75 Mg Tablet, 75 MG PO DAILY, #30 TAB 12/14/16 Aspirin* (Aspirin* EC) 81 Mg Tablet.dr, 81 MG PO DAILY, TAB 12/14/16 Allergies Allergies: Coded Allergies: No Known Drug Allergies (Verified Allergy, Unknown, 12/23/16) PMhx/Soc History of Surgery: Yes (CABG) Anesthesia Reaction: No Hx Neurological Disorder: No Hx Respiratory Disorders: No Hx Psychiatric Problems: No Hx Alcohol Use: No Hx Substance Use: No Hx Tobacco Use: No Smoking Status: Never smoker FmHx Family History: No diabetes, No coronary disease, No other Physical Exam Vitals Vital Signs Date Temp Pulse Resp B/P (MAP) Pulse Ox O2 O2 Flow FiO2 Time Delivery Rate 11/22/18 97.4 73 24 118/56 98 20:25 (76) Physical Exam I have reviewed the triage vital signs. Const: Well nourished, well developed, appears stated age Eyes: PERRL, no conjunctival injection HENT: NCAT, Neck supple without meningismus CV: RRR, Warm, well-perfused extremities RESP: CTAB, Unlabored respiratory effort GI: soft, non-tender, non-distended, no masses MSK: No gross deformities appreciated, immediate secondary to pain Skin: Warm, dry. No rashes Neuro: grossly non focal Psych: Appropriate mood and affect. Results 24 hrs Laboratory Tests Test 11/22/18 21:38 Bedside Urine pH (LAB) 5.5 Bedside Urine Protein (LAB) 1+ Bedside Urine Glucose (UA) Negative Bedside Urine Ketones (LAB) Negative Bedside Urine Blood Negative Bedside Urine Nitrite (LAB) Negative Bedside Urine Leukocyte Esterase (L 1+ Current Medications Medications Dose Sig/Vicenta Start Time Status Last (Trade) Ordered Route PRN Stop Time Admin Dose Reason Admin 10 mg ONCE ONCE 11/22/18 DC 11/22/18 Dexamethasone IM 22:00 22:15 (Decadron) 11/22/18 22:01 Tramadol 50 mg ONCE ONCE 11/22/18 DC 11/22/18 HCl PO 22:00 22:15 (Ultram) 11/22/18 22:01 Procedures/MDM 68-year-old female presents with complaint of lower back pain with radiation to lower extremity most consistent with sciatica. Low suspicion for acute cord compression or cauda equina at this time, given presentation and symptoms, including epidural abscess or hematoma. Patient has no history of malignancy, active or distant history. Patient has no unexplained weight loss. No recent fevers, rigors, malaise, or recent infection. No history of IVDU or skin- popping. Patient does not have any history concerning for saddle anesthesia/perianal sensory loss or complaining of decreased rectal tone. Patient does not have urinary retention or inability to control urine from overflow. Patient has no tenderness overlying spinous process. Patient has no focal weakness on examination. ED course: Tramadol, Decadron, and reassessment patient were reported of improvement in symptoms, now able to stand and walk with her cane take multiple steps in waiting area UA with 1+ leukocyte esterase will like to treat with course of cephalexin given patient's risk factors Will treat with a short course of low-dose steroids, explained to patient and family that she will have to monitor her fingersticks much closer given steroids propensity for increasing blood sugars, patient family and patient with understanding and agree to plan Given exam and history, low suspicion for cord compression, cauda equina, epidural abscess/hematoma. Distally neurovascularly intact. Query likely musculoskeletal component. Discussed pain control,and follow up with PMD. Cautious return precautions discussed w/ full understanding DISPOSITION PLAN: We discussed follow up with the patient's primary care doctor within 24 to 48 hours. Patient counseled regarding my diagnostic impression and care plan. Prior to discharge all questions answered. Pt agrees with treatment plan and understands strict return precautions. Precautionary instructions provided including instructions to return to the ER if not improving or for any worsening or changing symptoms or concerns. Disclaimer: Inadvertent spelling and grammatical errors are likely due to EHR/dictation software use and do not reflect on the overall quality of patient care. Also, please note that the electronic time recorded on this note does not necessarily reflect the actual time of the patient encounter. Departure Diagnosis: Primary Impression: Back pain Condition: Stable Patient Instructions: Back Pain W/ Sciatica Referrals: [facility] YOU HAVE RECEIVED A MEDICAL SCREENING EXAM AND THE RESULTS INDICATE THAT YOU DO NOT HAVE A CONDITION THAT REQUIRES URGENT TREATMENT IN THE EMERGENCY DEPARTMENT. FURTHER EVALUATION AND TREATMENT OF YOUR CONDITION CAN WAIT UNTIL YOU ARE SEEN IN YOUR DOCTORS OFFICE WITHIN THE NEXT 1-2 DAYS. IT IS YOUR RESPONSIBILITY TO MAKE AN APPOINTMENT FOR FOLOW-UP CARE. IF YOU HAVE A PRIMARY DOCTOR --you should call your primary doctor and schedule an appointment IF YOU DO NOT HAVE A PRIMARY DOCTOR YOU CAN CALL OUR PHYSICIAN REFERRAL HOTLINE AT IF YOU CAN NOT AFFORD TO SEE A PHYSICIAN YOU CAN CHOSE FROM THE FOLLOWING COMM [facility] [id number] [facility] [address] [facility] [address] [facility] [address] [facility] [address] [facility]. [facility] [address] Additional Instructions: Call your primary care doctor TOMORROW for an appointment during the next 2-3 days.See the doctor sooner or return here if your condition worsens before your appointment time. DESHAWN SEGOVIA PA-C Nov 22, 2018 22:06
[2018-11-22] MEDS ORDERED: PRED20TA PO (23:50)
[2018-11-22] MEDS ORDERED: CEPH-443 PO (23:50)
[2018-11-22] MEDS ORDERED: NAPR-985 PO (23:50)
== END 2018-11-23 00:14 | disposition home or self-care (01) ==
LOC: FTE 19:56
DX: M54.5 Low back pain (principal); E11.22 Type 2 diabetes mellitus with diabetic chronic kidney disease; N18.9 Chronic kidney disease, unspecified; I12.9 Hypertensive chronic kidney disease with stage 1 through stage 4 chronic kidney disease, or unspecified chronic kidney disease; I25.2 Old myocardial infarction; Z95.1 Presence of aortocoronary bypass graft; Z79.4 Long term (current) use of insulin
CPT/HCPCS: 81003; 96372; 99284; J1100